=== PATIENT | female | born 1945 | race Caucasian/White ===

== ENCOUNTER 2017-12-29 15:57 | Outpatient (CLI) | payer MEDICARE ==
--- NOTE | 2017-12-30 12:35 | XRAY Report ---
DATE OF SERVICE: 12/29/2017 TWO-VIEW CHEST: 12/29/2017 CLINICAL INDICATION: Cough. FINDINGS: Frontal and lateral views of the chest demonstrate an enlarged cardiac silhouette. Lung volumes are low. There is a patchy left midlung infiltrate present. No effusion or pneumothorax is seen. IMPRESSION: PATCHY LEFT MIDLUNG INFILTRATE. TD: 12/30/2017 12:33
== END 2017-12-29 15:58 | disposition home or self-care (01) ==
LOC: DI.N 15:57
PROVIDERS: ATTEND Physician Assistant
DX: R91.8 Other nonspecific abnormal finding of lung field (principal)
CPT/HCPCS: 71046

== ENCOUNTER 2018-07-08 15:47 | Outpatient (CLI) | payer MEDICARE ==
--- NOTE | 2018-07-11 08:37 | XRAY Report ---
Procedure Date: 07/08/2018 Accession Number: [id number] / [id number] Procedure: XRN - Chest 2 View X-Ray CPT Code: 87725 FULL RESULT: EXAM: Chest 2 View X-Ray DATE: 07/08/2018 4:07 PM CLINICAL HISTORY: PNA,SCREENING COMPARISON: None. TECHNIQUE: 2 views. FINDINGS: Lungs/Pleura: No focal opacities evident. No pneumothorax or pleural effusion. Low lung volumes. Mediastinum: Heart and mediastinal contours are stable and within normal limits taking into account technique and low lung volumes. Other: None. IMPRESSION: No pneumonia. RADIA
== END 2018-07-08 15:48 | disposition home or self-care (01) ==
LOC: DI.N 15:47
PROVIDERS: ATTEND Physician Assistant
DX: Z13.83 Encounter for screening for respiratory disorder NEC (principal); N95.8 Other specified menopausal and perimenopausal disorders
CPT/HCPCS: 71046

== ENCOUNTER 2018-07-11 14:10 | Outpatient (CLI) | payer MEDICARE ==
--- NOTE | 2018-07-12 10:28 | DEXA Report ---
Procedure Date: 07/11/2018 Accession Number: [id number] / [id number] Procedure: DEX - Dexa Spine and/or Hip CPT Code: FULL RESULT: EXAM: Dexa Spine and/or Hip DATE: 07/11/2018 2:55 PM CLINICAL HISTORY: SCREENING TECHNIQUE: Dual energy x-ray absorptiometry (DXA) was performed on a [facility]. Regions measured are the AP Spine, femoral neck, and if needed forearm. COMPARISON: None. In accordance with the International Society for Clinical Densitometry (ISCD) guidelines, data from previous exams may be reanalyzed using current recommendations and techniques. This is done to allow a more accurate basis for comparison with the current study. FINDINGS: The data for the lumbar spine is as follows: BMD (g/cm/cm) T-SCORE Z-SCORE REGION L1 0.581 -4.6 -3.3 L2 0.687 -4.3 -3.0 L3 0.727 -3.9 -2.6 L4 0.801 -3.3 -2.0 TOTAL 0.705 -4.0 -2.6 NOTE: All evaluable vertebrae are used for classification The data for the hip is as follows: BMD (g/cm/cm) T-SCORE Z-SCORE REGION Neck 0.716 -2.3 -0.7 TOTAL 0.733 -2.2 -0.7 NOTE: The femoral neck or total proximal femur, whichever is lowest, is used for classification. IMPRESSION: THE WHO CLASSIFICATION BASED ON THE INTERNATIONAL REFERENCE STANDARD IS OSTEOPOROSIS. THE FRACTURE RISK IS HIGH. RECOMMENDATION: Patients with diagnosis of osteoporosis or osteopenia should have regular bone mineral density assessment. For those eligible for Medicare, routine testing is allowed once every 2 years. Testing frequency can be increased for patients who have rapidly progressing disease or for those who are receiving medical therapy to restore bone mass. COMMENT: World Health Organization (WHO) definitions for osteoporosis and osteopenia: NORMAL BMD: T-score at -1.0 or higher, fracture risk is low OSTEOPENIA BMD: T-score between -1.0 and -2.5, fracture risk is increased. OSTEOPOROSIS BMD: T-score at -2.5 or lower, fracture risk is high. National Osteoporosis Foundation recommends: 1. Obtain adequate dietary calcium (at least 1200 mg per day) and vitamin D (400-800 international units per day). 2. Participate, as appropriate, in regular weightbearing and muscle-strengthening exercise. 3. Avoid tobacco use and reduce alcohol and caffeine intake. 4. For more detailed information see the website at www.NOF.org.
== END 2018-07-11 14:11 | disposition home or self-care (01) ==
LOC: DI 14:10
PROVIDERS: ATTEND Physician Assistant
DX: Z13.820 Encounter for screening for osteoporosis (principal); M81.0 Age-related osteoporosis without current pathological fracture; N95.8 Other specified menopausal and perimenopausal disorders
CPT/HCPCS: 77080

== ENCOUNTER 2019-01-07 03:46 | Outpatient (CLI) | payer MEDICARE | END 2019-01-07 03:47 | disposition critical access hospital (66) | LOC: EMS 03:46 | PROVIDERS: ATTEND Surgery | DX: R05 Cough (principal) | CPT/HCPCS: A0425; A0429 ==

== ENCOUNTER 2019-01-07 04:08 | Emergency (ER) | payer MEDICARE ==
--- NOTE | 2019-01-07 04:23 | ED Physician Documentation ---
History of Present Illness - Stated complaint Stated Complaint: WEAKNESS,COUGH,SOA - Chief complaint Chief Complaint: Resp - History obtained from History obtained from: Patient, EMS - History of Present Illness Timing: How many days ago (2-3) Pain level max: 0 Pain level now: 0 Improved by: nothing Worsened by: no exacerbating factors - Additonal information Additional information: BIBA, c/o 2-3 days of cough, generalized weakness Review of Systems Constitutional: denies: Fever, Chills, Sweats Cardiac: reports: Reviewed and negative Respiratory: reports: Cough. denies: Dyspnea, Hemoptysis, Wheezing GI: reports: Reviewed and negative : denies: Dysuria, Frequency Neurologic: reports: Generalized weakness. denies: Focal weakness, Numbness, Altered mental status PD PAST MEDICAL HISTORY - Past Medical History Past Medical History: Yes Cardiovascular: Hypertension Neuro: Cerebral palsy GI: GERD - Present Medications Home Medications: Ambulatory Orders Medication Instructions Recorded Confirmed Benzonatate [Tessalon Perle] 100 mg PO TID PRN #20 capsule 01/07/19 Fenofibrate Nanocrystallized 145 mg PO DAILY 01/07/19 01/07/19 [Fenofibrate] Lansoprazole [Prevacid] 1 cap PO DAILY 01/07/19 01/07/19 Latanoprost 2.5 ml OP DAILY 01/07/19 01/07/19 Losartan Potassium 1 tab PO DAILY 01/07/19 01/07/19 Metoclopramide HCl [Metoclopramide 1 tab PO DAILY PRN 01/07/19 01/07/19 HCl Odt] Polyethylene Glycol 1450 1 packet PO DAILY 01/07/19 01/07/19 - Allergies Allergies/Adverse Reactions: Allergies Allergy/AdvReac Type Severity Reaction Status Date / Time No Known Drug Allergies Allergy Verified 01/07/19 04:20 PD ED PE NORMAL - Vitals Vital signs reviewed: Yes - General General: Alert and oriented X 3, No acute distress, Well developed/nourished, Other (occasional [employer] cough during H+P) - HEENT HEENT: Moist mucous membranes - Neck Neck: Supple, no meningeal sign - Cardiac Cardiac: RRR, No gallop, No rub - Respiratory Respiratory: No respiratory distress, Clear bilaterally - Abdomen Abdomen: Soft, Non tender - Derm Derm: Normal color, Warm and dry - Extremities Extremities: No edema PD ED PE EXPANDED - Cardiac Cardiac: Murmur Present (3/6 TEJA greatest at cardiac base) Results - Vitals Vitals: Vital Signs - 24 hr 01/07/19 01/07/19 01/07/19 04:10 04:38 05:29 Temperature 36.9 C 37.2 C Heart Rate 104 H 101 H 107 H Respiratory 20 23 20 Rate Blood Pressure 163/83 H 136/89 H 160/87 H O2 Saturation 95 96 96 01/07/19 01/07/19 06:06 06:41 Temperature 36.1 C L Heart Rate 105 H 96 Respiratory 23 12 Rate Blood Pressure 162/81 H 141/74 H O2 Saturation 96 96 Oxygen O2 Source Room air - Labs Labs: Laboratory Tests 01/07/19 01/07/19 01/07/19 04:30 04:30 04:30 WBC 5.9 RBC 4.30 Hgb 13.0 Hct 37.9 MCV 88.2 MCH 30.3 MCHC 34.4 RDW 13.8 Plt Count 244 MPV 7.3 L Neut # (Auto) 4.6 Lymph # (Auto) 0.6 L Cuming # (Auto) 0.7 Eos # (Auto) 0.0 Baso # (Auto) 0.0 Absolute Nucleated RBC 0.00 Nucleated RBC % 0.1 Sodium 135 Potassium 3.7 Chloride 102 Carbon Dioxide 24 Anion Gap 9.0 BUN 24 H Creatinine 0.8 Estimated GFR (MDRD) 70 L Glucose 117 H Calcium 9.7 Total Bilirubin 0.8 AST 23 ALT 13 Alkaline Phosphatase 42 B-Natriuretic Peptide 79 Total Protein 6.9 Albumin 3.8 Globulin 3.1 Albumin/Globulin Ratio 1.2 Lipase 25 Influenza A (Rapid) Influenza B (Rapid) 01/07/19 04:30 WBC RBC Hgb Hct MCV MCH MCHC RDW Plt Count MPV Neut # (Auto) Lymph # (Auto) Cuming # (Auto) Eos # (Auto) Baso # (Auto) Absolute Nucleated RBC Nucleated RBC % Sodium Potassium Chloride Carbon Dioxide Anion Gap BUN Creatinine Estimated GFR (MDRD) Glucose Calcium Total Bilirubin AST ALT Alkaline Phosphatase B-Natriuretic Peptide Total Protein Albumin Globulin Albumin/Globulin Ratio Lipase Influenza A (Rapid) Negative Influenza B (Rapid) Negative - Rads (name of study) chest xray Radiology: Prelim report reviewed, See rad report PD MEDICAL DECISION MAKING - ED course Complexity details: reviewed results, re-evaluated patient, considered differential, d/w patient Departure - Departure Disposition: 01 Home, Self Care Clinical Impression: Bronchitis Condition: Good Instructions: ED Upper Resp Infec No Abx Tx Follow-Up: Yen Fox PA-C [Primary Care Provider] - (2-3 days if symptoms do not resolve) Prescriptions: Benzonatate [Tessalon Perle] 100 mg PO TID PRN #20 capsule PRN Reason: Cough Comments: In addition to the cough medication you have been prescribed today, you can also take an [id number] cough suppressant such as Robitussin DM
[2019-01-07 04:41] LABS: BASOPHILS % (AUTO) 0.7 %; EOSINOPHILS % (AUTO) 0.1 %; LYMPHOCYTES # (AUTO) 0.6 10^3/uL (1.5-3.5); LYMPHOCYTES % (AUTO) 10.6 %; MEAN CORPUSCULAR HEMOGLOBIN 30.3 pg (27.0-31.0); MEAN CORPUSCULAR HGB CONC 34.4 g/dL (32.0-36.0); MEAN CORPUSCULAR VOLUME 88.2 fL (81.0-99.0); MEAN PLATELET VOLUME 7.3 fL (7.9-10.8); MONOCYTES # (AUTO) 0.7 10^3/uL (0.0-1.0); MONOCYTES % (AUTO) 11.3 %; NEUTROPHILS # (AUTO) 4.6 10^3/uL (1.5-6.6); NEUTROPHILS % (AUTO) 77.3 %; PLT - PLATELET COUNT 244 10^3/uL (130-450); RED CELL DISTRIBUTION WIDTH 13.8 % (12.0-15.0); WHITE BLOOD COUNT 5.9 x10^3/uL (4.8-10.8)
[2019-01-07 04:53] LABS: ALBUMIN 3.8 g/dL (3.2-5.5); ALBUMIN/GLOBULIN RATIO 1.2 (1.0-2.2); BILIRUBIN,TOTAL 0.8 mg/dL (0.2-1.0); CALCIUM 9.7 mg/dL (8.5-10.3); CREATININE 0.8 mg/dL (0.4-1.0); TOTAL PROTEIN 6.9 g/dL (6.7-8.2)
--- NOTE | 2019-01-07 05:21 | XRAY Report ---
Reason: cough, dyspnea Procedure Date: 01/07/2019 Accession Number: [id number] / [id number] Procedure: XR - Chest 2 View X-Ray CPT Code: 93954 FULL RESULT: EXAM: CHEST RADIOGRAPHY EXAM DATE: 01/07/2019 05:07 AM. CLINICAL HISTORY: Shortness of breath for 3 days. Productive cough. COMPARISON: CHEST 2 VIEW 07/08/2018 4:05 PM. TECHNIQUE: 2 views. A total of 3 exposures are provided for review. FINDINGS IMPRESSION: 1. Lung volumes are small. Left midlung field linear atelectasis and/or scarring persists. 2. Coarse interstitial opacities are seen bilaterally, suggesting nonspecific scarring. 3. Cardiac silhouette remains mildly enlarged. No definite evidence of overt CHF. 4. No large effusion or definite pneumothorax. RADIA
[2019-01-07] MEDS ORDERED: BENZONATATE 100 MG CAPSULE PO STA (06:29)
[2019-01-07] MEDS ORDERED: guaiFENesin/DEXTROMETHORPHAN 10 ML UDC PO STA (06:29)
[2019-01-07 09:22] VITALS: BP 151/74
== END 2019-01-07 08:30 | disposition home or self-care (01) ==
LOC: EDUNIT# → ED 04:08
DX: J40 Bronchitis, not specified as acute or chronic (principal); I10 Essential (primary) hypertension; G80.9 Cerebral palsy, unspecified
CPT/HCPCS: 36415; 71046; 80053; 83690; 83880; 85025; 87275; 87276; 99283; 99284; A9270

== ENCOUNTER 2019-10-02 00:36 | Outpatient (CLI) | payer MEDICARE | END 2019-10-02 00:37 | disposition critical access hospital (66) | LOC: EMS 00:36 | PROVIDERS: ATTEND Surgery | DX: R05 Cough (principal) ==

== ENCOUNTER 2019-10-02 00:57 | Emergency (ER) | payer MEDICARE ==
[2019-10-02 01:09] VITALS: BP 133/66
[2019-10-02] MEDS ORDERED: ALBUTEROL NEB 2.5 MG/3 ML INH STA (01:09)
[2019-10-02] MEDS ORDERED: BENZONATATE 100 MG CAPSULE PO STA (01:09)
--- NOTE | 2019-10-02 01:14 | ED Physician Documentation ---
PD HPI URI - Stated complaint Stated Complaint: COUGH - Chief complaint Chief Complaint: Resp - History obtained from History obtained from: Patient, EMS - History of Present Illness Timing - onset: How many weeks ago (1) Timing duration: Weeks (1) Timing details: Gradual onset Pain level max: 0 Pain level now: 0 Associated symptoms: Nasal congestion, Rhinorrhea, Dry cough, Dyspnea (wheezing, out of her albuterol for "a while"). No: Fever, Hemoptysis Contributing factors: COPD / asthma Improves by: Rest Worsened by: Activity, Breathing Recently seen: Not recently seen Review of Systems Constitutional: denies: Fever, Chills Respiratory: reports: Cough GI: denies: Vomiting, Diarrhea Skin: denies: Rash Musculoskeletal: denies: Neck pain, Back pain Neurologic: denies: Headache PD PAST MEDICAL HISTORY - Past Medical History Cardiovascular: Hypertension Neuro: Cerebral palsy GI: GERD HEENT: Glaucoma - Present Medications Home Medications: Ambulatory Orders Medication Instructions Recorded Confirmed Fenofibrate Nanocrystallized 145 mg PO DAILY 01/07/19 01/07/19 [Fenofibrate] Lansoprazole [Prevacid] 1 cap PO DAILY 01/07/19 01/07/19 Latanoprost 1 drops OP DAILY 01/07/19 01/07/19 Losartan Potassium 0.5 tab PO DAILY 01/07/19 01/07/19 Metoclopramide HCl [Metoclopramide 1 tab PO DAILY PRN 01/07/19 01/07/19 HCl Odt] Polyethylene Glycol 1450 1 packet PO DAILY 01/07/19 01/07/19 Albuterol Sulf [Ventolin Hfa 1 - 2 puffs INH Q4HR PRN #1 inhaler 10/02/19 Inhaler] Albuterol Sulfate [Albuterol 2 puffs PRN PRN 10/02/19 10/02/19 Sulfate Hfa] Benzonatate [Tessalon Perle] 100 - 200 mg PO TID PRN #30 capsule 10/02/19 - Allergies Allergies/Adverse Reactions: Allergies Allergy/AdvReac Type Severity Reaction Status Date / Time No Known Drug Allergies Allergy Verified 01/07/19 04:20 - Social History Does the pt smoke?: No Smoking Status: Never smoker Does the pt drink ETOH?: No Does the pt have substance abuse?: No - Immunizations Immunizations are current?: No - POLST Patient has POLST: No PD ED PE NORMAL - Vitals Vital signs reviewed: Yes - General General: Alert and oriented X 3, No acute distress, Well developed/nourished - HEENT HEENT: Ears normal, Moist mucous membranes, Pharynx benign - Neck Neck: Supple, no meningeal sign - Cardiac Cardiac: RRR - Respiratory Respiratory: No respiratory distress, Other (Wheezing bilaterally) - Abdomen Abdomen: Soft, Non tender, Non distended - Derm Derm: Warm and dry - Extremities Extremities: No edema - Neuro Neuro: Alert and oriented X 3 Results - Vitals Vitals: Vital Signs - 24 hr 10/02/19 10/02/19 01:03 01:33 Temperature 36.7 C Heart Rate 86 85 Respiratory 20 20 Rate Blood Pressure 133/66 H O2 Saturation 97 Oxygen O2 Source Room air - Rads (name of study) cxr Radiology: Prelim report reviewed, EMP read contemporaneously, See rad report (Small streaky bibasilar airspace disease demonstrates progression. This may be from atelectasis, aspiration, or pneumonia. 2. Left midlung field linear subsegmental scarring noted. ) PD MEDICAL DECISION MAKING - ED course Complexity details: reviewed results, re-evaluated patient, considered differential, d/w patient ED course: Patient is well-appearing, nontoxic. Afebrile. No acute findings of pneumonia on chest x-ray. Feels better after nebulizer treatment. Will place on cough medication and refill her albuterol for home. We will hold steroids at this time. No respiratory distress or hypoxia. Patient counseled regarding signs and symptoms for which I believe and urgent re-evaluation would be necessary. Patient with good understanding of and agreement to plan and is comfortable going home at this time This document was made in part using voice recognition software. While efforts are made to proofread this document, sound alike and grammatical errors may occur. Departure - Departure Disposition: 01 Home, Self Care Clinical Impression: Viral URI Condition: Good Instructions: ED URI Viral Follow-Up: Yen Fox PA-C [Primary Care Provider] - Within 1 week Prescriptions: Albuterol Sulf [Ventolin Hfa Inhaler] 1 - 2 puffs INH Q4HR PRN #1 inhaler PRN Reason: Shortness Of Air/Wheezing Benzonatate [Tessalon Perle] 100 - 200 mg PO TID PRN #30 capsule PRN Reason: Cough Comments: Use the medications as prescribed. Return if you worsen. Follow-up with your doctor for further care.
--- NOTE | 2019-10-02 01:52 | XRAY Report ---
Reason: cough Procedure Date: 10/02/2019 Accession Number: [id number] / [id number] Procedure: XR - Chest 2 View X-Ray CPT Code: 50279 Final Report FULL RESULT: EXAM: CHEST RADIOGRAPHY EXAM DATE: 10/02/2019 01:35 AM. CLINICAL HISTORY: Cough. COMPARISON: CHEST 2 VIEW 01/07/2019 4:49 AM. TECHNIQUE: 2 views. FINDINGS: Lungs/Pleura: Lung volumes remain small as before. Left midlung field scarring is again seen. Small streaky bibasilar airspace disease demonstrates progression. There is no effusion. No definite pneumothorax. Mediastinum: Cardiac silhouette is within normal limits when accounting for lung volumes and technique. Other: Moderate multilevel thoracic degenerative change. IMPRESSION: 1. Small streaky bibasilar airspace disease demonstrates progression. This may be from atelectasis, aspiration, or pneumonia. 2. Left midlung field linear subsegmental scarring noted. RADIA
== END 2019-10-02 02:11 | disposition home or self-care (01) ==
LOC: EDUNIT# → ED 00:57
DX: J06.9 Acute upper respiratory infection, unspecified (principal); B97.89 Other viral agents as the cause of diseases classified elsewhere; I10 Essential (primary) hypertension; G80.9 Cerebral palsy, unspecified
CPT/HCPCS: 71046; 94640; 99283; 99284; A9270

== ENCOUNTER 2020-08-21 10:40 | Outpatient (CLI) | payer MEDICARE ==
--- NOTE | 2020-08-21 11:16 | XRAY Report ---
PROCEDURE: Chest 2 View X-Ray INDICATIONS: COUGH TECHNIQUE: 2 view(s) of the chest. COMPARISON: None. FINDINGS: Surgical changes and devices: None. Lungs and pleura: No pleural effusions or pneumothorax. Lungs are clear. Mediastinum: Mediastinal contours are normal. Heart size is enlarged. Bones and chest wall: No suspicious bony abnormalities. Soft tissues appear unremarkable. IMPRESSION: No acute cardiopulmonary pathology. Cardiomegaly. Reviewed by: Fuentes Oswald MD on 08/21/2020 11:15 AM PDT Approved by: Fuentes Oswald MD on 08/21/2020 11:15 AM PDT Station ID: [id number]
== END 2020-08-21 10:41 | disposition home or self-care (01) ==
LOC: DI 10:40
PROVIDERS: ATTEND Physician Assistant
DX: R05 Cough (principal); R01.1 Cardiac murmur, unspecified
CPT/HCPCS: 71046

== ENCOUNTER 2020-12-28 14:46 | Outpatient (CLI) | payer MEDICARE ==
--- NOTE | 2020-12-28 15:23 | XRAY Report ---
PROCEDURE: Forearm RT INDICATIONS: CONTUSION OF RIGHT ARM TECHNIQUE: 2 views of the forearm were acquired. COMPARISON: None. FINDINGS: Bones: No fractures or dislocations. No suspicious bony lesions. Note is made of negative ulnar va riance. Age-appropriate degenerative changes are seen. Soft tissues: No suspicious soft tissue calcifications or masses. IMPRESSION: No significant plain film abnormality is seen. Reviewed by: Bernabe Nicolas MD on 12/28/2020 2:22 PM [place] Approved by: Bernabe Nicolas MD on 12/28/2020 2:22 PM [place] Station ID: [id number]
== END 2020-12-28 23:59 | disposition home or self-care (01) ==
LOC: DI.N 14:46
PROVIDERS: ATTEND Nurse Practitioner
DX: S50.11XA Contusion of right forearm, initial encounter (principal)

== ENCOUNTER 2021-01-06 23:02 | Outpatient (CLI) | payer MEDICARE | END 2021-01-06 23:03 | disposition critical access hospital (66) | LOC: EMS 23:02 | PROVIDERS: ATTEND Emergency Medicine | DX: R53.1 Weakness (principal) | CPT/HCPCS: A0425; A0429 ==

== ENCOUNTER 2021-01-06 23:18 | Emergency (ER) | payer MEDICARE ==
--- NOTE | 2021-01-06 23:39 | ED Physician Documentation ---
PD HPI FOCAL NEURO - Stated complaint Stated Complaint: WEAKNESS - Chief complaint Chief Complaint: Neuro - History obtained from History obtained from: Patient, EMS - History of Present Illness Timing - onset: Other (feeling of generalized weakness mostly in evenings for the past several days to a week.) Timing - duration: Days (several days or more, having feeling of general weakness mainly in the evening and when up overnight. She says she feels okay in the mornings and during day, getting around with walker.) Timing - details: Waxing and waning Severity of deficit: Moderate Weakness: Other (generalized). No: Face Numbness: No: Face, Arm, Leg Associated symptoms: No: Headache, Nausea / vomiting, Syncope, Chest pain, Back pain Contributing factors: negative: Anticoagulated, Atrial fibrillation Baseline status: positive: Walker Similar symptoms before: Has not had sx before Recently seen: Not recently seen (denies any recent change in medications) Review of Systems Constitutional: denies: Fever, Chills Nose: denies: Rhinorrhea / runny nose, Congestion Throat: denies: Sore throat Cardiac: reports: Pedal edema (for 1-2 weeks, mild). denies: Chest pain / pressure, Palpitations, Calf pain Respiratory: denies: Dyspnea, Cough GI: denies: Abdominal Pain, Nausea, Vomiting, Diarrhea, Bloody / black stool : denies: Dysuria, Frequency Skin: denies: Rash, Lesions Neurologic: reports: Generalized weakness. denies: Focal weakness, Numbness, Headache Endocrine: denies: Weight gain PD PAST MEDICAL HISTORY - Past Medical History Cardiovascular: Hypertension Neuro: Dementia, Cerebral palsy GI: GERD HEENT: Glaucoma - Present Medications Home Medications: Ambulatory Orders Medication Instructions Recorded Confirmed Lansoprazole [Prevacid] 1 cap PO DAILY 01/07/19 01/07/19 Losartan Potassium 0.5 tab PO DAILY 01/07/19 01/07/19 Albuterol Sulfate [Albuterol 2 puffs PRN PRN 10/02/19 10/02/19 Sulfate Hfa] - Allergies Allergies/Adverse Reactions: Allergies Allergy/AdvReac Type Severity Reaction Status Date / Time No Known Drug Allergies Allergy Verified 01/07/19 04:20 - Social History Does the pt smoke?: No Smoking Status: Never smoker Does the pt drink ETOH?: No Does the pt have substance abuse?: No - Immunizations Immunizations are current?: No - POLST Patient has POLST: No PD ED PE NORMAL - Vitals Vital signs reviewed: Yes - General General: Alert and oriented X 3, No acute distress, Well developed/nourished - HEENT HEENT: Pharynx benign - Neck Neck: Supple, no meningeal sign, No adenopathy - Cardiac Cardiac: RRR, No murmur - Respiratory Respiratory: No respiratory distress, Clear bilaterally (mostly with some faint mild crackles at bases. ) - Abdomen Abdomen: Normal bowel sounds, Soft, Non tender, Non distended - Back Back: No CVA TTP - Derm Derm: Normal color, Warm and dry - Extremities Extremities: No tenderness to palpate, Normal ROM s pain, No calf tenderness / cord, Other (1+ edema in both legs at ankles and up to proximal lower legs. ) - Neuro Neuro: Alert and oriented X 3, No motor deficit, Normal speech Eye Opening: Spontaneous Motor: Obeys Commands Verbal: Oriented GCS Score: 15 - Psych Psych: Normal mood Results - Vitals Vitals: Vital Signs - 24 hr 01/06/21 01/07/21 01/07/21 23:24 01:29 03:00 Temperature 36.7 C 36.7 C 36.6 C Heart Rate 91 99 81 Respiratory 18 24 18 Rate Blood Pressure 134/121 H 125/89 H 120/75 O2 Saturation 98 96 97 Oxygen O2 Source Room air - EKG (time done) 23:46 Rate: Rate (enter#) (85) Rhythm: NSR [place]: Normal Intervals: Normal ND QRS: Normal Ischemia: Normal ST segments. No: ST elevation c/w ischemia, ST depression - Labs Labs: Laboratory Tests 01/06/21 01/06/21 01/06/21 23:39 23:39 23:39 WBC 8.1 RBC 4.14 L Hgb 12.3 Hct 38.6 MCV 93.2 MCH 29.7 MCHC 31.9 L RDW 13.4 Plt Count 305 MPV 9.3 Neut # (Auto) 5.5 Lymph # (Auto) 1.8 Kerr # (Auto) 0.6 Eos # (Auto) 0.2 Baso # (Auto) 0.1 Absolute Nucleated RBC 0.00 Nucleated RBC % 0.0 Sodium 136 Potassium 3.8 Chloride 102 Carbon Dioxide 24 Anion Gap 10.0 BUN 30 H Creatinine 0.7 Estimated GFR (MDRD) 81 L Glucose 117 H Calcium 10.7 H Magnesium 1.9 Total Bilirubin 0.8 AST 28 ALT 31 Alkaline Phosphatase 36 L Troponin I High Sens 5.5 Total Protein 6.9 Albumin 4.0 Globulin 2.9 Albumin/Globulin Ratio 1.4 TSH 01/06/21 23:39 WBC RBC Hgb Hct MCV MCH MCHC RDW Plt Count MPV Neut # (Auto) Lymph # (Auto) Kerr # (Auto) Eos # (Auto) Baso # (Auto) Absolute Nucleated RBC Nucleated RBC % Sodium Potassium Chloride Carbon Dioxide Anion Gap BUN Creatinine Estimated GFR (MDRD) Glucose Calcium Magnesium Total Bilirubin AST ALT Alkaline Phosphatase Troponin I High Sens Total Protein Albumin Globulin Albumin/Globulin Ratio TSH 1.08 - Rads (name of study) chest xray Radiology: Prelim report reviewed (some interval development of pulmonary edema (or pneumonitis)), See rad report PD MEDICAL DECISION MAKING - ED course Complexity details: reviewed results (No focal deficits. States general weakness mostly in evenings. Can check basic labs. CXR and ECG. ), considered differenti al, d/w patient ED course: Nurse called the patient's sister, with whome the patient lives. Sister is unable to get the patient (Is chair bound at home). Sister says the patient has dementia and is not safe to come home by taxi; need someone to escort her to the door and ensure she gets there safely and not wander. Departure - Departure Disposition: 01 Home, Self Care Clinical Impression: Edema leg, Generalized weakness Condition: Stable Record reviewed to determine appropriate education?: Yes Instructions: ED Weakness [facility] Comments: Your blood count and white count are normal. Chest x-ray shows possibly some fluid edema in the lungs. You have swelling in both legs. I think some of your weakness feeling may be just from fluid retention. I would suggest adding fur osemide diuretic (water pill) daily for several days to week. Continue your other usual medicines. Follow-up with your primary care if not feeling improved over the next several days.
[2021-01-06 23:55] LABS: BASOPHILS # (AUTO) 0.1 10^3/uL (0.0-0.1); BASOPHILS % (AUTO) 0.6 %; EOSINOPHILS # (AUTO) 0.2 10^3/uL (0.0-0.7); EOSINOPHILS % (AUTO) 1.9 %; HGB - HEMOGLOBIN 12.3 g/dL (12.0-16.0); LYMPHOCYTES # (AUTO) 1.8 10^3/uL (1.5-3.5); LYMPHOCYTES % (AUTO) 21.9 %; MEAN CORPUSCULAR HEMOGLOBIN 29.7 pg (27.0-31.0); MEAN CORPUSCULAR HGB CONC 31.9 g/dL (32.0-36.0); MEAN CORPUSCULAR VOLUME 93.2 fL (81.0-99.0); MEAN PLATELET VOLUME 9.3 fL (7.9-10.8); MONOCYTES # (AUTO) 0.6 10^3/uL (0.0-1.0); MONOCYTES % (AUTO) 7.2 %; NEUTROPHILS # (AUTO) 5.5 10^3/uL (1.5-6.6); NEUTROPHILS % (AUTO) 68.3 %; PLT - PLATELET COUNT 305 10^3/uL (130-450); RED BLOOD COUNT 4.14 10^6/uL (4.20-5.40); RED CELL DISTRIBUTION WIDTH 13.4 % (12.0-15.0); WHITE BLOOD COUNT 8.1 x10^3/uL (4.8-10.8)
[2021-01-07] MEDS ORDERED: FUROSEMIDE 20 MG/2 ML VIAL IVP STA (00:53)
[2021-01-07 01:17] LABS: ALBUMIN/GLOBULIN RATIO 1.4 (1.0-2.2); BILIRUBIN,TOTAL 0.8 mg/dL (0.2-1.0); CALCIUM 10.7 mg/dL (8.5-10.3); CREATININE 0.7 mg/dL (0.4-1.0); MAGNESIUM 1.9 mg/dL (1.7-2.8); TOTAL PROTEIN 6.9 g/dL (6.7-8.2)
[2021-01-07 03:25] VITALS: BP 120/75
--- NOTE | 2021-01-07 09:09 | XRAY Report ---
PROCEDURE: Chest 1 View X-Ray INDICATIONS: chest pain TECHNIQUE: One view of the chest was acquired. COMPARISON: 08/21/2020 FINDINGS: Surgical changes and devices: None. Lungs and pleura: There are low lung volumes. Mild pulmonary vascular prominence is demonstrated con sistent with pulmonary edema. No focal consolidation. No pleural effusions or pneumothorax. Mediastinum: Mediastinal contours appear unchanged. Heart size is normal. Bones and chest wall: No suspicious bony lesions. Overlying soft tissues appear unremarkable. IMPRESSION: 1. Mild pulmonary edema which may be due to cardiogenic or noncardiogenic etiologies such as atypical infection. Reviewed by: Jackson Perez MD on 01/07/2021 9:08 AM [facility] Approved by: Jackson Perez MD on 01/07/2021 9:08 AM [facility] Station ID: [id number]
== END 2021-01-07 04:07 | disposition home or self-care (01) ==
LOC: EDUNIT# → ED 23:18
DX: R60.0 Localized edema (principal); R53.1 Weakness; G80.9 Cerebral palsy, unspecified; I45.2 Bifascicular block; I10 Essential (primary) hypertension; F03.90 Unspecified dementia, unspecified severity, without behavioral disturbance, psychotic disturbance, mood disturbance, and anxiety
CPT/HCPCS: 36415; 80053; 83735; 84443; 84484; 85025; 93005; 96374; 99284

== ENCOUNTER 2021-01-07 04:11 | Outpatient (CLI) | payer MEDICARE | END 2021-01-07 04:12 | disposition home or self-care (01) | LOC: EMS 04:11 | PROVIDERS: ATTEND Emergency Medicine | DX: F03.90 Unspecified dementia, unspecified severity, without behavioral disturbance, psychotic disturbance, mood disturbance, and anxiety (principal) | CPT/HCPCS: A0425; A0428 ==

== ENCOUNTER 2021-01-07 18:48 | Outpatient (CLI) | payer MEDICARE | END 2021-01-07 18:49 | disposition EMS.NT | LOC: EMS 18:48 | DX: Z03.89 Encounter for observation for other suspected diseases and conditions ruled out (principal) ==

== ENCOUNTER 2021-01-14 11:24 | Outpatient (CLI) | payer MEDICARE | END 2021-01-14 11:25 | disposition critical access hospital (66) | LOC: EMS 11:24 | DX: R68.83 Chills (without fever) (principal); R52 Pain, unspecified | CPT/HCPCS: A0425; A0429 ==

== ENCOUNTER 2021-01-14 11:44 | Emergency (ER) | payer MEDICARE ==
[2021-01-14 12:05] VITALS: BP 140/118
--- NOTE | 2021-01-14 12:37 | ED Physician Documentation ---
History of Present Illness - Stated complaint Stated Complaint: BODY ACHES/CHILLS/FEVER - Chief complaint Chief Complaint: General - History obtained from History obtained from: Patient, EMS - History of Present Illness Timing: How many weeks ago (1) Pain level max: 0 Pain level now: 0 - Additonal information Additional information: Patient brought in by EMS. Sister is her primary caregiver. Reports increased weakness over the past week or so. Occasional chills, no fever. No cough. No vomiting. no abd pain. no rhinorrhea or congestion. Patient unable to give any history. Has dementia and is at her normal baseline. Review of Systems Unable to obtain: Dementia Constitutional: reports: Chills. denies: Fever GI: denies: Vomiting, Diarrhea Skin: denies: Rash Musculoskeletal: denies: Neck pain, Back pain Neurologic: denies: Headache PD PAST MEDICAL HISTORY - Past Medical History Past Medical History: Yes Cardiovascular: Hypertension Respiratory: Asthma Neuro: Dementia, Cerebral palsy Endocrine/Autoimmune: None GI: GERD TRAVEL OT: None : None HEENT: Glaucoma Psych: None Musculoskeletal: None - Present Medications Home Medications: Ambulatory Orders Medication Instructions Recorded Confirmed Losartan Potassium 50 mg PO DAILY 01/07/19 01/14/21 Albuterol Sulfate [Albuterol 2 puffs IH PRN PRN 10/02/19 01/14/21 Sulfate Hfa] Bimatoprost 0.01% Ophth Dops 1 drops EACHEYE HS 01/14/21 01/14/21 [Lumigan 0.01% Ophth Drops] Calcium Carbonate [Elemental 600 mg PO DAILY 01/14/21 01/14/21 Calcium] Cholecalciferol [Vitamin D3] 25 mcg PO DAILY 01/14/21 01/14/21 Fenofibrate Nanocrystallized 145 mg PO DAILY 01/14/21 01/14/21 [Tricor] Metoclopramide [Reglan] 10 mg PO Q6H PRN 01/14/21 01/14/21 Polyethylene Glycol 3350 [Glycolax] 1 cap ORAL DAILY 01/14/21 01/14/21 - Allergies Allergies/Adverse Reactions: Allergies Allergy/AdvReac Type Severity Reaction Status Date / Time No Known Drug Allergies Allergy Verified 01/14/21 12:00 - Social History Does the pt smoke?: No Smoking Status: Never smoker Does the pt drink ETOH?: No Does the pt have substance abuse?: No - Immunizations Immunizations are current?: No - POLST Patient has POLST: No PD ED PE NORMAL - Vitals Vital signs reviewed: Yes - General General: No acute distress, Well developed/nourished, Other (alert, pleasant. Oriented to person and place only. States she does not why she is here. ) - HEENT HEENT: Moist mucous membranes - Neck Neck: Supple, no meningeal sign - Cardiac Cardiac: RRR - Respiratory Respiratory: No respiratory distress, Clear bilaterally - Abdomen Abdomen: Soft, Non tender, Non distended - Back Back: No CVA TTP - Derm Derm: Warm and dry - Extremities Extremities: No edema - Neuro Neuro: No motor deficit, No sensory deficit Results - Vitals Vitals: Vital Signs - 24 hr 01/14/21 12:01 Temperature 36.9 C Heart Rate 82 Respiratory 18 Rate Blood Pressure 140/118 H O2 Saturation 96 Oxygen O2 Source Room air - Labs Labs: Laboratory Tests 01/14/21 01/14/21 01/14/21 13:11 13:11 13:40 WBC 7.4 RBC 4.32 Hgb 12.8 Hct 40.3 MCV 93.3 MCH 29.6 MCHC 31.8 L RDW 13.4 Plt Count 365 MPV 9.2 Neut # (Auto) 5.3 Lymph # (Auto) 1.3 L [place] # (Auto) 0.6 Eos # (Auto) 0.1 Baso # (Auto) 0.0 Absolute Nucleated RBC 0.00 Nucleated RBC % 0.0 Sodium 139 Potassium 3.9 Chloride 100 L Carbon Dioxide 27 Anion Gap 12.0 BUN 21 H Creatinine 0.8 Estimated GFR (MDRD) 70 L Glucose 120 H Calcium 11.3 H Total Bilirubin 0.9 AST 23 ALT 24 Alkaline Phosphatase 38 L Total Protein 7.5 Albumin 4.5 Globulin 3.0 Albumin/Globulin Ratio 1.5 Urine Color DARK YELLOW Urine Clarity CLEAR Urine pH 7.0 Ur Specific [place] 1.020 Urine Protein NEGATIVE Urine Glucose (UA) NEGATIVE Urine Ketones TRACE Urine Occult Blood NEGATIVE Urine Nitrite NEGATIVE Urine Bilirubin NEGATIVE Urine Urobilinogen 4 H Ur Leukocyte Esterase NEGATIVE Ur Microscopic Review NOT INDICATED Urine Culture Comments NOT INDICATED PD MEDICAL DECISION MAKING - ED course Complexity details: reviewed results, re-evaluated patient, considered differential, d/w patient, d/w family ED course: 75-year-old female apparently has had generalized weakness over the past week or 2. Increased urinary frequency. Does have a severe history of dementia. Lives at home with her sister. No laboratory abnormalities. No UTI. Patient appears to be at her mental baseline. She is able to ambulate with a walker. The sister states that they have caregivers that come and help in the home. She does not want the patient to go to respite or a fdc. She declines to speak with the social worker psychiatric. I do not see any reversible causes of her condition at this time. She has an appointment with physical therapy tomorrow. This document was made in part using voice recognition software. While efforts are made to proofread this document, sound alike and grammatical errors may occur. Departure - Departure Disposition: 01 Home, Self Care Clinical Impression: Generalized weakness Condition: Good Instructions: ED Weakness [facility] Follow-Up: your,doctor within 1 week [Other] Comments: Her laboratory testing does not show any acute abnormalities today. Follow-up with her doctor for further care. Return if she worsens. Physical therapy may be able to help her more tomorrow. Discharge Date/Time: 01/14/21 16:34
[2021-01-14 13:16] LABS: BASOPHILS % (AUTO) 0.5 %; EOSINOPHILS # (AUTO) 0.1 10^3/uL (0.0-0.7); EOSINOPHILS % (AUTO) 1.9 %; HGB - HEMOGLOBIN 12.8 g/dL (12.0-16.0); LYMPHOCYTES # (AUTO) 1.3 10^3/uL (1.5-3.5); MEAN CORPUSCULAR HEMOGLOBIN 29.6 pg (27.0-31.0); MEAN CORPUSCULAR HGB CONC 31.8 g/dL (32.0-36.0); MEAN CORPUSCULAR VOLUME 93.3 fL (81.0-99.0); MEAN PLATELET VOLUME 9.2 fL (7.9-10.8); MONOCYTES # (AUTO) 0.6 10^3/uL (0.0-1.0); MONOCYTES % (AUTO) 7.6 %; NEUTROPHILS # (AUTO) 5.3 10^3/uL (1.5-6.6); NEUTROPHILS % (AUTO) 71.7 %; PLT - PLATELET COUNT 365 10^3/uL (130-450); RED BLOOD COUNT 4.32 10^6/uL (4.20-5.40); RED CELL DISTRIBUTION WIDTH 13.4 % (12.0-15.0); WHITE BLOOD COUNT 7.4 x10^3/uL (4.8-10.8)
[2021-01-14 13:33] LABS: ALBUMIN 4.5 g/dL (3.2-5.5); ALBUMIN/GLOBULIN RATIO 1.5 (1.0-2.2); BILIRUBIN,TOTAL 0.9 mg/dL (0.2-1.0); CALCIUM 11.3 mg/dL (8.5-10.3); CREATININE 0.8 mg/dL (0.4-1.0); TOTAL PROTEIN 7.5 g/dL (6.7-8.2)
[2021-01-14 14:11] LABS: BILIRUBIN,URINE NEGATIVE (NEGATIVE); GLUCOSE, URINE (UA) NEGATIVE (NEGATIVE); KETONES,URINE (UA) TRACE mg/dL (NEGATIVE); LEUKOCYTE ESTERASE, URINE NEGATIVE (NEGATIVE); NITRITE,URINE NEGATIVE (NEGATIVE); OCCULT BLOOD,URINE NEGATIVE (NEGATIVE); PROTEIN,URINE NEGATIVE (NEGATIVE); UROBILINOGEN,URINE 4 E.U./dL (NORMAL)
[2021-01-14 14:21] LABS: CLARITY,URINE CLEAR (CLEAR)
== END 2021-01-14 16:34 | disposition home or self-care (01) ==
LOC: EDUNIT# → ED 11:44
DX: R53.1 Weakness (principal); F03.90 Unspecified dementia, unspecified severity, without behavioral disturbance, psychotic disturbance, mood disturbance, and anxiety; I10 Essential (primary) hypertension; G80.9 Cerebral palsy, unspecified
CPT/HCPCS: 36415; 51701; 80053; 81003; 85025; 99283; U0004; 81001; 87086

== ENCOUNTER 2021-01-14 16:19 | Outpatient (CLI) | payer MEDICARE | END 2021-01-14 16:20 | disposition home or self-care (01) | LOC: EMS 16:19 | PROVIDERS: ATTEND Emergency Medicine | DX: F03.90 Unspecified dementia, unspecified severity, without behavioral disturbance, psychotic disturbance, mood disturbance, and anxiety (principal); R41.0 Disorientation, unspecified | CPT/HCPCS: A0425; A0428 ==

== ENCOUNTER 2021-01-20 21:20 | Outpatient (CLI) | payer MEDICARE | END 2021-01-20 21:21 | disposition critical access hospital (66) | LOC: EMS 21:20 | PROVIDERS: ATTEND Emergency Medicine | DX: R53.1 Weakness (principal); R53.83 Other fatigue; R63.8 Other symptoms and signs concerning food and fluid intake | CPT/HCPCS: A0425; A0429 ==

== ENCOUNTER 2021-01-20 21:39 | Emergency (ER) | payer MEDICARE ==
--- NOTE | 2021-01-20 21:40 | ED Physician Documentation ---
History of Present Illness - Stated complaint Stated Complaint: GENERALIZED WEAKNESS - History obtained from History obtained from: Patient, EMS - History of Present Illness Timing: How many weeks ago (1-2) Pain level max: 0 Pain level now: 0 Improved by: nothing Worsened by: no exacerbating factors - Additonal information Additional information: BIBA. Patient reportedly has baseline dementia and thus her contribution to HPI/ROS is limited. Per EMS report, patient's sister, who is the primary car egiver, reports that patient has had gradually worsening generalized weakness and decreasing PO intake over past 1-2 weeks. Patient simply says "my sister wanted me to come" when I ask her why she is here. Patient denies any pain, including (when specifically asked) neck, arm, and back pain. She denies changes in vision, denies difficulty breathing. Regarding difficulty walking, she says "of course", but cannot elaborate on when she started having difficulty and whether it is worsening. She uses a walker. She is oriented x 1 (location: guesses "assisted?", then laughs as if she knows that this is incorrect, but she cannot offer any other guess. She says it is December but has no guess as to year). EMS say that sister also reports that patient has had episodes of dyspnea with exertion. Patient was T+R 01/06 and 01/14 of this month, as well. On one of those visits, medical record indicates family declined to meet with social work and expressed that they did not want placement in assisted or similar facility. Review of Systems Unable to obtain: Dementia Respiratory: reports: Dyspnea Neurologic: reports: Generalized weakness PD PAST MEDICAL HISTORY - Past Medical History Past Medical History: Yes Respiratory: Asthma - Present Medications Home Medications: Ambulatory Orders Medication Instructions Recorded Confirmed Losartan Potassium 50 mg PO DAILY 01/07/19 01/14/21 Albuterol Sulfate [Albuterol 2 puffs IH PRN PRN 10/02/19 01/14/21 Sulfate Hfa] Bimatoprost 0.01% Ophth Dops 1 drops EACHEYE HS 01/14/21 01/14/21 [Lumigan 0.01% Ophth Drops] Calcium Carbonate [Elemental 600 mg PO DAILY 01/14/21 01/14/21 Calcium] Cholecalciferol [Vitamin D3] 25 mcg PO DAILY 01/14/21 01/14/21 Fenofibrate Nanocrystallized 145 mg PO DAILY 01/14/21 01/14/21 [Tricor] Metoclopramide [Reglan] 10 mg PO Q6H PRN 01/14/21 01/14/21 Polyethylene Glycol 3350 [Glycolax] 1 cap ORAL DAILY 01/14/21 01/14/21 Aspirin [Aspirin EC] 81 mg PO DAILY 01/20/21 01/20/21 Furosemide [Lasix] 20 mg PO DAILY 01/20/21 01/20/21 Lansoprazole [Prevacid] 30 mg PO DAILY 01/20/21 01/20/21 Mecobalamin [B-12] 5,000 mcg PO DAILY 01/20/21 01/20/21 - Allergies Allergies/Adverse Reactions: Allergies Allergy/AdvReac Type Severity Reaction Status Date / Time No Known Drug Allergies Allergy Verified 01/14/21 12:00 PD ED PE NORMAL - Vitals Vital signs reviewed: Yes - General General: No acute distress, Well developed/nourished, Other (awake, alert, smiling and pleasant, conversant and gives appropriate answers although frequently incorrect when asked specific objective questions (such as orientati on questions)) - HEENT HEENT: PERRL, EOMI - Neck Neck: Supple, no meningeal sign, No bony TTP - Cardiac Cardiac: RRR, No murmur - Respiratory Respiratory: No respiratory distress, Clear bilaterally - Abdomen Abdomen: Soft, Non tender - Back Back: No spinal TTP - Derm Derm: Normal color, Warm and dry - Extremities Extremities: No edema - Neuro Neuro: carry out clerk and shelf stocker 2-12 intact, No motor deficit, No sensory deficit, Normal speech Eye Opening: Spontaneous Motor: Obeys Commands Verbal: Confused GCS Score: 14 - Psych Psych: Normal mood, Normal affect Results - Vitals Vitals: Vital Signs - 24 hr 01/21/21 01/21/21 01/21/21 09:00 11:00 12:03 Temperature 37.0 C Heart Rate 90 100 87 Respiratory 18 20 17 Rate Blood Pressure 151/69 H 144/68 H 146/89 H O2 Saturation 96 95 100 Oxygen O2 Source Room air - Labs Labs: Laboratory Tests 01/20/21 01/20/21 01/20/21 22:33 22:33 22:33 WBC 8.4 RBC 4.41 Hgb 13.2 Hct 40.4 MCV 91.6 MCH 29.9 MCHC 32.7 RDW 13.2 Plt Count 324 MPV 9.2 Neut # (Auto) 5.7 Lymph # (Auto) 1.9 [place] # (Auto) 0.7 Eos # (Auto) 0.1 Baso # (Auto) 0.0 Absolute Nucleated RBC 0.00 Nucleated RBC % 0.0 Sodium 138 Potassium 3.7 Chloride 100 L Carbon Dioxide 25 Anion Gap 13.0 BUN 18 Creatinine 0.9 Estimated GFR (MDRD) 61 L Glucose 103 H Calcium 11.0 H Total Bilirubin 1.0 AST 20 ALT 18 Alkaline Phosphatase 38 L B-Natriuretic Peptide 52 Total Protein 7.4 Albumin 4.4 Globulin 3.0 Albumin/Globulin Ratio 1.5 Lipase 25 Urine Color Urine Clarity Urine pH Ur Specific [place] Urine Protein Urine Glucose (UA) Urine Ketones Urine Occult Blood Urine Nitrite Urine Bilirubin Urine Urobilinogen Ur Leukocyte Esterase Ur Microscopic Review Urine Culture Comments 01/21/21 00:28 WBC RBC Hgb Hct MCV MCH MCHC RDW Plt Count MPV Neut # (Auto) Lymph # (Auto) [place] # (Auto) Eos # (Auto) Baso # (Auto) Absolute Nucleated RBC Nucleated RBC % Sodium Potassium Chloride Carbon Dioxide Anion Gap BUN Creatinine Estimated GFR (MDRD) Glucose Calcium Total Bilirubin AST ALT Alkaline Phosphatase B-Natriuretic Peptide Total Protein Albumin Globulin Albumin/Globulin Ratio Lipase Urine Color DARK YELLOW Urine Clarity CLEAR Urine pH 6.0 Ur Specific [place] 1.020 Urine Protein NEGATIVE Urine Glucose (UA) NEGATIVE Urine Ketones TRACE Urine Occult Blood NEGATIVE Urine Nitrite NEGATIVE Urine Bilirubin NEGATIVE Urine Urobilinogen 4 H Ur Leukocyte Esterase NEGATIVE Ur Microscopic Review NOT INDICATED Urine Culture Comments NOT INDICATED - Rads (name of study) chest xray Radiology: Prelim report reviewed, See rad report PD MEDICAL DECISION MAKING - ED course Complexity details: reviewed results, re-evaluated patient, considered differential, d/w patient ED course: No acute/emergent findings on exam nor testing. ED RN contacted caregiver who expressed frustration with ongoing care of patient. Consult with social economist was suggested and caregiver agrees with this option. Patient held overnight in ED for SW consult in AM, case signed out to Dr. Stover at end of my shift pending SW consult Departure - Departure Disposition: 01 Home, Self Care Clinical Impression: Generalized weakness Condition: Good Instructions: ED Weakness [facility] Follow-Up: [facility] [Provider Group] Discharge Date/Time: 01/21/21 12:05
[2021-01-20 22:39] LABS: BASOPHILS % (AUTO) 0.5 %; EOSINOPHILS # (AUTO) 0.1 10^3/uL (0.0-0.7); EOSINOPHILS % (AUTO) 1.3 %; HGB - HEMOGLOBIN 13.2 g/dL (12.0-16.0); LYMPHOCYTES # (AUTO) 1.9 10^3/uL (1.5-3.5); LYMPHOCYTES % (AUTO) 22.2 %; MEAN CORPUSCULAR HEMOGLOBIN 29.9 pg (27.0-31.0); MEAN CORPUSCULAR HGB CONC 32.7 g/dL (32.0-36.0); MEAN CORPUSCULAR VOLUME 91.6 fL (81.0-99.0); MEAN PLATELET VOLUME 9.2 fL (7.9-10.8); MONOCYTES # (AUTO) 0.7 10^3/uL (0.0-1.0); MONOCYTES % (AUTO) 8.2 %; NEUTROPHILS # (AUTO) 5.7 10^3/uL (1.5-6.6); NEUTROPHILS % (AUTO) 67.6 %; PLT - PLATELET COUNT 324 10^3/uL (130-450); RED BLOOD COUNT 4.41 10^6/uL (4.20-5.40); RED CELL DISTRIBUTION WIDTH 13.2 % (12.0-15.0); WHITE BLOOD COUNT 8.4 x10^3/uL (4.8-10.8)
[2021-01-20 22:52] LABS: ALBUMIN 4.4 g/dL (3.2-5.5); ALBUMIN/GLOBULIN RATIO 1.5 (1.0-2.2); CREATININE 0.9 mg/dL (0.4-1.0); TOTAL PROTEIN 7.4 g/dL (6.7-8.2)
[2021-01-21 00:39] LABS: GLUCOSE, URINE (UA) NEGATIVE (NEGATIVE); KETONES,URINE (UA) TRACE mg/dL (NEGATIVE); LEUKOCYTE ESTERASE, URINE NEGATIVE (NEGATIVE); NITRITE,URINE NEGATIVE (NEGATIVE); OCCULT BLOOD,URINE NEGATIVE (NEGATIVE); PROTEIN,URINE NEGATIVE (NEGATIVE); UROBILINOGEN,URINE 4 E.U./dL (NORMAL)
[2021-01-21 00:42] LABS: BILIRUBIN,URINE NEGATIVE (NEGATIVE); CLARITY,URINE CLEAR (CLEAR); ICTOTEST,URINE NEGATIVE
--- NOTE | 2021-01-21 09:02 | XRAY Report ---
PROCEDURE: Chest 2 View X-Ray INDICATIONS: dyspnea TECHNIQUE: 2 view(s) of the chest. COMPARISON: 08/21/2020, 01/06/2021. FINDINGS: Surgical changes and devices: None. Lungs and pleura: No pleural effusions or pneumothorax. Mild diffuse interstitial prominence, likely chronic. Streaky left greater than right bibasilar opacities compatible with atelectasis. No focal c onsolidation. Mediastinum: Mediastinal contours are stable. Heart size is enlarged. Bones and chest wall: No suspicious bony abnormalities. Soft tissues appear unremarkable. IMPRESSION: Cardiomegaly with mild diffuse interstitial prominence. Otherwise, no evidence for pulmonary edema. Stable appearance of streaky bibasilar opacities likely representing atelectasis and/or scarring. No focal consolidation. No significant discrepancy with initial interpretation by overnight radiologist. Reviewed by: Mamadou Henry MD on 01/21/2021 9:01 AM PST Approved by: Mamadou Henry MD on 01/21/2021 9:01 AM PST Station ID: [id number]
--- NOTE | 2021-01-21 11:43 | ED Physician Documentation ---
ED Addendum - Addendum Addendum: 01/21/21 11:41 The patient was seen by social work who talked with the patient and her sister who is her primary caregiver. They discussed options of respite care but the sister declined based on financial and other issues. Apparently the sister wants to still be the main caregiver. Social work did assist them with information about home health aides and that will be established by the sister. The patient will be returned home in the caregiver is in agreement. Disposition: Discharged home in stable condition.
[2021-01-21 12:03] VITALS: BP 146/89
== END 2021-01-21 12:05 | disposition home or self-care (01) ==
LOC: EDUNIT# → ED 21:39
DX: R42 Dizziness and giddiness (principal); F03.90 Unspecified dementia, unspecified severity, without behavioral disturbance, psychotic disturbance, mood disturbance, and anxiety
CPT/HCPCS: 36415; 51701; 80053; 81001; 81003; 83690; 83880; 85025; 87086; 99284

== ENCOUNTER 2021-01-21 12:09 | Outpatient (CLI) | payer MEDICARE | END 2021-01-21 12:10 | disposition home or self-care (01) | LOC: EMS 12:09 | DX: F03.90 Unspecified dementia, unspecified severity, without behavioral disturbance, psychotic disturbance, mood disturbance, and anxiety (principal); R53.1 Weakness | CPT/HCPCS: A0425; A0428 ==

== ENCOUNTER 2021-01-26 17:35 | Outpatient (CLI) | payer MEDICARE | END 2021-01-26 17:36 | disposition critical access hospital (66) | LOC: EMS 17:35 | PROVIDERS: ATTEND Emergency Medicine | DX: R53.1 Weakness (principal) | CPT/HCPCS: A0425; A0429 ==

== ENCOUNTER 2021-01-26 17:53 | Emergency (ER) | payer MEDICARE ==
[2021-01-26] MEDS ORDERED: SODIUM CHLORIDE 0.9% 1,000 ML IV STA (18:04)
--- NOTE | 2021-01-26 18:04 | ED Physician Documentation ---
History of Present Illness - Stated complaint Stated Complaint: WEAKNESS - Chief complaint Chief Complaint: General - History obtained from History obtained from: Patient, EMS - History of Present Illness Timing: Today Pain level max: 0 Pain level now: 0 - Additonal information Additional information: Patient is a pleasant 75-year-old female with dementia who lives at home with her sister. Her sister called EMS tonight because the patient has been "weaker than usual". The patient apparently has also had increased urination over the past few days. No fevers. No vomiting. Nothing makes it better or worse. Patient is unable to give any meaningful history. Per EMS there has been no trauma. Review of Systems Unable to obtain: Dementia Ten Systems: 10 systems reviewed and negative Constitutional: denies: Fever, Chills Nose: denies: Rhinorrhea / runny nose, Congestion Respiratory: denies: Cough GI: denies: Vomiting, Diarrhea : denies: Dysuria, Frequency, Hesitancy Skin: denies: Rash Neurologic: denies: Headache PD PAST MEDICAL HISTORY - Past Medical History Past Medical History: Yes Cardiovascular: Hypertension Respiratory: Asthma Neuro: Dementia, Cerebral palsy Endocrine/Autoimmune: None GI: GERD WEAVER WIRE LOOM: None : None HEENT: Glaucoma Psych: None Musculoskeletal: None - Past Surgical History Past Surgical History: Yes - Present Medications Home Medications: Ambulatory Orders Medication Instructions Recorded Confirmed Losartan Potassium 50 mg PO DAILY 01/07/19 01/26/21 Albuterol Sulfate [Albuterol 2 puffs IH PRN PRN 10/02/19 01/26/21 Sulfate Hfa] Bimatoprost 0.01% Ophth Dops 1 drops EACHEYE HS 01/14/21 01/26/21 [Lumigan 0.01% Ophth Drops] Calcium Carbonate [Elemental 600 mg PO DAILY 01/14/21 01/26/21 Calcium] Cholecalciferol [Vitamin D3] 25 mcg PO DAILY 01/14/21 01/26/21 Fenofibrate Nanocrystallized 145 mg PO DAILY 01/14/21 01/26/21 [Tricor] Metoclopramide [Reglan] 10 mg PO Q6H PRN 01/14/21 01/26/21 Polyethylene Glycol 3350 [Glycolax] 1 cap ORAL DAILY 01/14/21 01/26/21 Aspirin [Aspirin EC] 81 mg PO DAILY 01/20/21 01/26/21 Furosemide [Lasix] 20 mg PO DAILY 01/20/21 01/26/21 Lansoprazole [Prevacid] 30 mg PO DAILY 01/20/21 01/26/21 Mecobalamin [B-12] 5,000 mcg PO DAILY 01/20/21 01/26/21 - Allergies Allergies/Adverse Reactions: Allergies Allergy/AdvReac Type Severity Reaction Status Date / Time No Known Drug Allergies Allergy Verified 01/26/21 18:01 - Social History Does the pt smoke?: No Smoking Status: Never smoker Does the pt drink ETOH?: No Does the pt have substance abuse?: No - Immunizations Immunizations are current?: No - POLST Patient has POLST: No PD ED PE NORMAL - Vitals Vital signs reviewed: Yes - General General: No acute distress, Well developed/nourished, Other (Alert, oriented to person only.) - HEENT HEENT: Atraumatic, PERRL, Ears normal, Moist mucous membranes - Neck Neck: Supple, no meningeal sign - Cardiac Cardiac: RRR, Strong equal pulses - Respiratory Respiratory: No respiratory distress, Clear bilaterally - Abdomen Abdomen: Soft, Non tender, Non distended - Derm Derm: Warm and dry - Extremities Extremities: No edema - Neuro Neuro: No motor deficit, No sensory deficit, Other (Alert, oriented to person only pleasant) Results - Vitals Vitals: Vital Signs - 24 hr 01/26/21 01/26/21 17:58 19:44 Temperature 36.8 C 36.8 C Heart Rate 85 86 Respiratory 20 22 Rate Blood Pressure 144/90 H 130/71 O2 Saturation 98 98 Oxygen O2 Source Room air - Labs Labs: Laboratory Tests 01/26/21 01/26/21 01/26/21 18:09 18:11 18:11 WBC 8.0 RBC 4.13 L Hgb 12.4 Hct 38.3 MCV 92.7 MCH 30.0 MCHC 32.4 RDW 13.4 Plt Count 271 MPV 9.1 Neut # (Auto) 5.9 Lymph # (Auto) 1.3 L [place] # (Auto) 0.6 Eos # (Auto) 0.2 Baso # (Auto) 0.0 Absolute Nucleated RBC 0.00 Nucleated RBC % 0.0 Sodium 139 Potassium 3.4 L Chloride 102 Carbon Dioxide 27 Anion Gap 10.0 BUN 22 H Creatinine 0.8 Estimated GFR (MDRD) 70 L Glucose 117 H Calcium 10.8 H Total Bilirubin 0.7 AST 20 ALT 20 Alkaline Phosphatase 35 L Total Protein 6.7 Albumin 4.2 Globulin 2.5 Albumin/Globulin Ratio 1.7 Urine Color YELLOW Urine Clarity CLEAR Urine pH 5.5 Ur Specific [place] 1.020 Urine Protein NEGATIVE Urine Glucose (UA) NEGATIVE Urine Ketones NEGATIVE Urine Occult Blood SMALL H Urine Nitrite NEGATIVE Urine Bilirubin NEGATIVE Urine Urobilinogen 1 (NORMAL) Ur Leukocyte Esterase NEGATIVE Urine RBC 0-5 Urine WBC 0-3 Ur Squamous Epith Cells FEW Squamous Urine Bacteria Rare Urine Mucus Few Strands Ur Microscopic Review INDICATED Urine Culture Comments NOT INDICATED PD MEDICAL DECISION MAKING - ED course Complexity details: reviewed results, re-evaluated patient, considered differential, d/w patient ED course: 75-year-old female with mild dehydration, but no other acute findings. She does have dementia. She is able to stand, get off the gurney by herself and go to the bathroom by herself here. Appears to be at her baseline. She has a sister who takes care of her at home and they are working on caregivers. No other acute abnormalities at this time. Patient states that she feels normal. Patient will be discharged home to follow-up with her doctor. This document was made in part using voice recognition software. While efforts are made to proofread this document, sound alike and grammatical errors may occur. Departure - Departure Disposition: 01 Home, Self Care Clinical Impression: Generalized weakness, Dehydration Condition: Good Instructions: ED Dehydration Follow-Up: your,doctor in 1 week [Other] Comments: Follow-up with your doctor for further care. You should also discuss with her doctor other options besides home health such as respite care or fdc care or a dementia facility. She was given IV fluids tonight. Other than dehydration, her blood work did not show any acute abnormalities. Discharge Date/Time: 01/26/21 19:46
[2021-01-26 18:15] LABS: BASOPHILS % (AUTO) 0.5 %; EOSINOPHILS # (AUTO) 0.2 10^3/uL (0.0-0.7); HCT - HEMATOCRIT 38.3 % (37.0-47.0); HGB - HEMOGLOBIN 12.4 g/dL (12.0-16.0); LYMPHOCYTES # (AUTO) 1.3 10^3/uL (1.5-3.5); LYMPHOCYTES % (AUTO) 15.9 %; MEAN CORPUSCULAR HGB CONC 32.4 g/dL (32.0-36.0); MEAN CORPUSCULAR VOLUME 92.7 fL (81.0-99.0); MEAN PLATELET VOLUME 9.1 fL (7.9-10.8); MONOCYTES # (AUTO) 0.6 10^3/uL (0.0-1.0); MONOCYTES % (AUTO) 7.7 %; NEUTROPHILS # (AUTO) 5.9 10^3/uL (1.5-6.6); NEUTROPHILS % (AUTO) 73.8 %; PLT - PLATELET COUNT 271 10^3/uL (130-450); RED BLOOD COUNT 4.13 10^6/uL (4.20-5.40); RED CELL DISTRIBUTION WIDTH 13.4 % (12.0-15.0)
[2021-01-26 18:17] LABS: BILIRUBIN,URINE NEGATIVE (NEGATIVE); GLUCOSE, URINE (UA) NEGATIVE (NEGATIVE); KETONES,URINE (UA) NEGATIVE (NEGATIVE); LEUKOCYTE ESTERASE, URINE NEGATIVE (NEGATIVE); NITRITE,URINE NEGATIVE (NEGATIVE); OCCULT BLOOD,URINE SMALL (NEGATIVE); PH,URINE 5.5 PH (5.0-7.5); PROTEIN,URINE NEGATIVE (NEGATIVE); UROBILINOGEN,URINE 1 (NORMAL) E.U./dL (NORMAL)
[2021-01-26 18:18] LABS: CLARITY,URINE CLEAR (CLEAR)
[2021-01-26 18:28] LABS: ALBUMIN 4.2 g/dL (3.2-5.5); ALBUMIN/GLOBULIN RATIO 1.7 (1.0-2.2); BILIRUBIN,TOTAL 0.7 mg/dL (0.2-1.0); CALCIUM 10.8 mg/dL (8.5-10.3); CREATININE 0.8 mg/dL (0.4-1.0); POTASSIUM 3.4 mmol/L (3.5-5.0); TOTAL PROTEIN 6.7 g/dL (6.7-8.2)
[2021-01-26 18:30] LABS: BACTERIA,URINE Rare /HPF (None Seen); MUCUS,URINE Few Strands; RBC,URINE 0-5 /HPF (0-5); SQUAMOUS EPITHELIAL CELL,UR FEW Squamous (<= Few); WBC,URINE 0-3 /HPF (0-5)
[2021-01-26 19:46] VITALS: BP 130/71
== END 2021-01-26 19:46 | disposition home or self-care (01) ==
LOC: EDUNIT# → ED 17:53
DX: E86.0 Dehydration (principal); R53.1 Weakness; G80.9 Cerebral palsy, unspecified; F03.90 Unspecified dementia, unspecified severity, without behavioral disturbance, psychotic disturbance, mood disturbance, and anxiety; I10 Essential (primary) hypertension; Z79.82 Long term (current) use of aspirin
CPT/HCPCS: 36415; 51701; 80053; 81001; 81003; 85025; 87086; 99283; 99284

== ENCOUNTER 2021-01-26 19:46 | Outpatient (CLI) | payer MEDICARE | END 2021-01-26 19:47 | disposition home or self-care (01) | LOC: EMS 19:46 | PROVIDERS: ATTEND Emergency Medicine | DX: F03.90 Unspecified dementia, unspecified severity, without behavioral disturbance, psychotic disturbance, mood disturbance, and anxiety (principal); R53.1 Weakness; E86.0 Dehydration | CPT/HCPCS: A0425; A0428 ==

== ENCOUNTER 2021-01-31 11:20 | Outpatient (CLI) | payer MEDICARE | END 2021-01-31 11:21 | disposition critical access hospital (66) | LOC: EMS 11:20 | PROVIDERS: ATTEND Emergency Medicine | DX: R52 Pain, unspecified (principal); R35.0 Frequency of micturition | CPT/HCPCS: A0425; A0429 ==

== ENCOUNTER 2021-01-31 11:40 | Emergency (ER) | payer MEDICARE ==
--- NOTE | 2021-01-31 12:36 | ED Physician Documentation ---
PD HPI FEMALE - Stated complaint Stated Complaint: FEMALE - Chief complaint Chief Complaint: Abd Pain - History obtained from History obtained from: Patient, Family (sister by phone) - Additional information Additional information: C/O urinary urgency and bladder pain. Poor memory so much of the hx from sister by phone. Review of Systems Unable to obtain: Confused PD PAST MEDICAL HISTORY - Past Medical History Cardiovascular: Hypertension Respiratory: Asthma Neuro: Dementia, Cerebral palsy Endocrine/Autoimmune: None GI: GERD ENVIRONMENTAL SERVICES COORDINATOR: None : None HEENT: Glaucoma Psych: None Musculoskeletal: None - Past Surgical History Past Surgical History: Yes - Present Medications Home Medications: Ambulatory Orders Medication Instructions Recorded Confirmed Losartan Potassium 50 mg PO DAILY 01/07/19 01/26/21 Albuterol Sulfate [Albuterol 2 puffs IH PRN PRN 10/02/19 01/26/21 Sulfate Hfa] Bimatoprost 0.01% Ophth Dops 1 drops EACHEYE HS 01/14/21 01/26/21 [Lumigan 0.01% Ophth Drops] Calcium Carbonate [Elemental 600 mg PO DAILY 01/14/21 01/26/21 Calcium] Cholecalciferol [Vitamin D3] 25 mcg PO DAILY 01/14/21 01/26/21 Fenofibrate Nanocrystallized 145 mg PO DAILY 01/14/21 01/26/21 [Tricor] Metoclopramide [Reglan] 10 mg PO Q6H PRN 01/14/21 01/26/21 Polyethylene Glycol 3350 [Glycolax] 1 cap ORAL DAILY 01/14/21 01/26/21 Aspirin [Aspirin EC] 81 mg PO DAILY 01/20/21 01/26/21 Furosemide [Lasix] 20 mg PO DAILY 01/20/21 01/26/21 Lansoprazole [Prevacid] 30 mg PO DAILY 01/20/21 01/26/21 Mecobalamin [B-12] 5,000 mcg PO DAILY 01/20/21 01/26/21 Ciprofloxacin [Cipro] 250 mg PO Q12H #6 tablet 01/31/21 - Allergies Allergies/Adverse Reactions: Allergies Allergy/AdvReac Type Severity Reaction Status Date / Time No Known Drug Allergies Allergy Verified 01/31/21 11:48 - Social History Does the pt smoke?: No Smoking Status: Never smoker Does the pt drink ETOH?: No Does the pt have substance abuse?: No - Immunizations Immunizations are current?: No - POLST Patient has POLST: No PD ED PE NORMAL - Vitals Vital signs reviewed: Yes - General General: Other (A/O x1) - HEENT HEENT: PERRL, EOMI - Neck Neck: Supple, no meningeal sign, No bony TTP - Cardiac Cardiac: RRR, No murmur - Respiratory Respiratory: No respiratory distress, Clear bilaterally - Abdomen Abdomen: Non tender - Back Back: No CVA TTP, No spinal TTP - Derm Derm: Normal color, Warm and dry - Extremities Extremities: No edema, No calf tenderness / cord - Neuro Eye Opening: Spontaneous Motor: Obeys Commands Verbal: Confused GCS Score: 14 Results - Vitals Vitals: Vital Signs - 24 hr 01/31/21 01/31/21 01/31/21 11:48 13:51 15:00 Temperature 37.2 C Heart Rate 90 77 89 Respiratory 18 18 19 Rate Blood Pressure 135/71 H 126/73 169/100 H O2 Saturation 95 97 98 Oxygen O2 Source Room air - Labs Labs: Laboratory Tests 01/31/21 01/31/21 01/31/21 12:38 12:38 12:38 WBC 7.4 RBC 4.16 L Hgb 12.6 Hct 38.7 MCV 93.0 MCH 30.3 MCHC 32.6 RDW 13.8 Plt Count 258 MPV 9.4 Neut # (Auto) 6.1 Lymph # (Auto) 0.7 L Harney # (Auto) 0.5 Eos # (Auto) 0.0 Baso # (Auto) 0.0 Absolute Nucleated RBC 0.00 Nucleated RBC % 0.0 Sodium 140 Potassium 3.8 Chloride 104 Carbon Dioxide 27 Anion Gap 9.0 BUN 24 H Creatinine 0.7 Estimated GFR (MDRD) 81 L Glucose 149 H Lactic Acid 1.7 Calcium 10.7 H Total Bilirubin 0.6 AST 25 ALT 26 Alkaline Phosphatase 33 L Total Protein 6.7 Albumin 4.1 Globulin 2.6 Albumin/Globulin Ratio 1.6 Lipase 27 Urine Color Urine Clarity Urine pH Ur Specific [place] Urine Protein Urine Glucose (UA) Urine Ketones Urine Occult Blood Urine Nitrite Urine Bilirubin Urine Urobilinogen Ur Leukocyte Esterase Urine RBC Urine WBC Ur Epithelial Cells Ur Squamous Epith Cells Urine Bacteria Ur Microscopic Review Urine Culture Comments 01/31/21 14:09 WBC RBC Hgb Hct MCV MCH MCHC RDW Plt Count MPV Neut # (Auto) Lymph # (Auto) Harney # (Auto) Eos # (Auto) Baso # (Auto) Absolute Nucleated RBC Nucleated RBC % Sodium Potassium Chloride Carbon Dioxide Anion Gap BUN Creatinine Estimated GFR (MDRD) Glucose Lactic Acid Calcium Total Bilirubin AST ALT Alkaline Phosphatase Total Protein Albumin Globulin Albumin/Globulin Ratio Lipase Urine Color YELLOW Urine Clarity SL. CLOUDY Urine pH 6.0 Ur Specific [place] 1.020 Urine Protein NEGATIVE Urine Glucose (UA) NEGATIVE Urine Ketones NEGATIVE Urine Occult Blood MODERATE H Urine Nitrite POSITIVE H Urine Bilirubin NEGATIVE Urine Urobilinogen 1 (NORMAL) Ur Leukocyte Esterase TRACE H Urine RBC 0-5 Urine WBC 4-5 Ur Epithelial Cells FEW Transitional Ur Squamous Epith Cells MOD Squamous H Urine Bacteria Many H Ur Microscopic Review INDICATED Urine Culture Comments NOT INDICATED PD MEDICAL DECISION MAKING - ED course ED course: Per sister by phone, with whom she lives. Sister is in poor health and with pt's decline she is having a lot of trouble caring for Sulma. They are trying to place her but pt has no money. counter supply worker became involved, she notes that the sister has not filled out her Medicaid application yet and as such no new placement opportunities are available today. Departure - Departure Disposition: Home, Self Care Clinical Impression: Cystitis Dementia Qualifiers: Dementia type: unspecified type Dementia behavioral disturbance: without behavioral disturbance Qualified Code(s): F03.90 - Unspecified dementia without behavioral disturbance Condition: Good Record reviewed to determine appropriate education?: Yes Instructions: ED Dementia Caregiver Support, ED UTI Cystitis Female Prescriptions: Ciprofloxacin [Cipro] 250 mg PO Q12H #6 tablet Comments: Make sure to fill out her Medicaid application so that you have more resources for potential placement. We will culture your urine, the results should be done in 48-72 hours. If an antibiotic change is necessary we will call you. Return if worse in the meantime, especially if you develop increasing flank pain, fevers, or cannot keep down the medication. Discharge Date/Time: 01/31/21 16:01
[2021-01-31 12:44] LABS: BASOPHILS % (AUTO) 0.4 %; EOSINOPHILS % (AUTO) 0.4 %; HCT - HEMATOCRIT 38.7 % (37.0-47.0); HGB - HEMOGLOBIN 12.6 g/dL (12.0-16.0); LYMPHOCYTES # (AUTO) 0.7 10^3/uL (1.5-3.5); LYMPHOCYTES % (AUTO) 9.2 %; MEAN CORPUSCULAR HEMOGLOBIN 30.3 pg (27.0-31.0); MEAN CORPUSCULAR HGB CONC 32.6 g/dL (32.0-36.0); MEAN PLATELET VOLUME 9.4 fL (7.9-10.8); MONOCYTES # (AUTO) 0.5 10^3/uL (0.0-1.0); MONOCYTES % (AUTO) 6.9 %; NEUTROPHILS # (AUTO) 6.1 10^3/uL (1.5-6.6); NEUTROPHILS % (AUTO) 82.8 %; PLT - PLATELET COUNT 258 10^3/uL (130-450); RED BLOOD COUNT 4.16 10^6/uL (4.20-5.40); RED CELL DISTRIBUTION WIDTH 13.8 % (12.0-15.0); WHITE BLOOD COUNT 7.4 x10^3/uL (4.8-10.8)
[2021-01-31 12:57] LABS: ALBUMIN 4.1 g/dL (3.2-5.5); ALBUMIN/GLOBULIN RATIO 1.6 (1.0-2.2); BILIRUBIN,TOTAL 0.6 mg/dL (0.2-1.0); CALCIUM 10.7 mg/dL (8.5-10.3); CREATININE 0.7 mg/dL (0.4-1.0); POTASSIUM 3.8 mmol/L (3.5-5.0); TOTAL PROTEIN 6.7 g/dL (6.7-8.2)
[2021-01-31 14:24] LABS: BILIRUBIN,URINE NEGATIVE (NEGATIVE); GLUCOSE, URINE (UA) NEGATIVE (NEGATIVE); KETONES,URINE (UA) NEGATIVE (NEGATIVE); LEUKOCYTE ESTERASE, URINE TRACE (NEGATIVE); NITRITE,URINE POSITIVE (NEGATIVE); OCCULT BLOOD,URINE MODERATE (NEGATIVE); PROTEIN,URINE NEGATIVE (NEGATIVE); UROBILINOGEN,URINE 1 (NORMAL) E.U./dL (NORMAL)
[2021-01-31 14:26] LABS: CLARITY,URINE SL. CLOUDY (CLEAR)
[2021-01-31] MEDS ORDERED: CIPROFLOXACIN 250 MG TABLET PO STA (14:32)
[2021-01-31 14:37] LABS: BACTERIA,URINE Many /HPF (None Seen); EPITHELIAL CELLS,UR FEW Transitional /HPF (<= Few); RBC,URINE 0-5 /HPF (0-5); SQUAMOUS EPITHELIAL CELL,UR MOD Squamous (<= Few)
[2021-01-31 15:03] VITALS: BP 169/100
== END 2021-01-31 16:01 | disposition home or self-care (01) ==
LOC: EDUNIT# → ED 11:40
DX: N30.90 Cystitis, unspecified without hematuria (principal); F03.90 Unspecified dementia, unspecified severity, without behavioral disturbance, psychotic disturbance, mood disturbance, and anxiety; G80.9 Cerebral palsy, unspecified; I10 Essential (primary) hypertension; Z79.82 Long term (current) use of aspirin
CPT/HCPCS: 36415; 51701; 80053; 81001; 83605; 83690; 85025; 87086; 99281; 99283; A9270; 81003

== ENCOUNTER 2021-01-31 16:03 | Outpatient (CLI) | payer MEDICARE | END 2021-01-31 16:04 | disposition home or self-care (01) | LOC: EMS 16:03 | PROVIDERS: ATTEND Emergency Medicine | DX: F03.90 Unspecified dementia, unspecified severity, without behavioral disturbance, psychotic disturbance, mood disturbance, and anxiety (principal); R41.0 Disorientation, unspecified | CPT/HCPCS: A0425; A0428 ==

== ENCOUNTER 2021-02-13 13:01 | Outpatient (CLI) | payer MEDICARE | END 2021-02-13 13:02 | disposition critical access hospital (66) | LOC: EMS 13:01 | PROVIDERS: ATTEND Registered Nurse | DX: R41.0 Disorientation, unspecified (principal) | CPT/HCPCS: A0425; A0429 ==

== ENCOUNTER 2021-02-13 13:19 | Emergency (ER) | payer MEDICARE ==
--- NOTE | 2021-02-13 13:39 | ED Physician Documentation ---
History of Present Illness - Stated complaint Stated Complaint: CONFUSION - Chief complaint Chief Complaint: General - Additonal information Additional information: 75-year-old female presents emergency department for evaluation of confusion that has been worsening. Patient was visited by home health nurse and after discussion with the sister at home felt that ER evaluation was appropriate. She was seen in this ER 01/31/2021 and found to have a urinary tract infection. She was prescribed Cipro. The sister reports that the patient has not been taking her meds or eating properly. The sister who is her caregiver is also recently become bedbound and is no longer able to help care for the patient who has fairly advanced dementia. Initial presentation in the room the patient is crying and tearful stating she cannot take it anymore and stating that she has to urinate. Spoke with the patient's Sister Gwyn on the phone. She reports that over the last month her dementia has significantly worsened. She typically now voids in a diaper and is having increased difficulty standing. Sister reports that over the last few days that she has eaten nothing and drink very little only a few sips of water. Gwyn does not feel that she can adequately care for her sister anymore given her own medical concerns. Review of Systems Unable to obtain: Dementia, Other (some history obtained by sister) PD PAST MEDICAL HISTORY - Past Medical History Cardiovascular: Hypertension Respiratory: Asthma Neuro: Dementia, Cerebral palsy Endocrine/Autoimmune: None GI: GERD ROD PULLER: None : None HEENT: Glaucoma Psych: None Musculoskeletal: None - Past Surgical History Past Surgical History: Yes - Present Medications Home Medications: Ambulatory Orders Medication Instructions Recorded Confirmed Losartan Potassium 50 mg PO DAILY 01/07/19 02/13/21 Albuterol Sulfate [Albuterol 2 puffs IH PRN PRN 10/02/19 02/13/21 Sulfate Hfa] Bimatoprost 0.01% Ophth Dops 1 drops EACHEYE HS 01/14/21 02/13/21 [Lumigan 0.01% Ophth Drops] Calcium Carbonate [Elemental 600 mg PO DAILY 01/14/21 02/13/21 Calcium] Cholecalciferol [Vitamin D3] 25 mcg PO DAILY 01/14/21 02/13/21 Fenofibrate Nanocrystallized 145 mg PO DAILY 01/14/21 02/13/21 [Tricor] Metoclopramide [Reglan] 10 mg PO Q6H PRN 01/14/21 02/13/21 Polyethylene Glycol 3350 [Glycolax] 1 cap ORAL DAILY 01/14/21 02/13/21 Aspirin [Aspirin EC] 81 mg PO DAILY 01/20/21 02/13/21 Furosemide [Lasix] 20 mg PO DAILY 01/20/21 02/13/21 Lansoprazole [Prevacid] 30 mg PO DAILY 01/20/21 02/13/21 Mecobalamin [B-12] 5,000 mcg PO DAILY 01/20/21 02/13/21 Ciprofloxacin [Cipro] 250 mg PO Q12H #6 tablet 01/31/21 02/13/21 - Allergies Allergies/Adverse Reactions: Allergies Allergy/AdvReac Type Severity Reaction Status Date / Time No Known Drug Allergies Allergy Verified 02/13/21 14:01 - Social History Does the pt smoke?: No Smoking Status: Never smoker Does the pt drink ETOH?: No Does the pt have substance abuse?: No - Immunizations Immunizations are current?: No - POLST Patient has POLST: No PD ED PE EXPANDED - General General: Alert, Anxious, Other (repetitive words, crying) - Cardiac Cardiac: Tachy, Regular Rhythm, Radial strong equal, Pedal strong equal, Cap refill < 2 sec - Respiratory Respiratory: Clear to ausultation shmuel. No: Distress, Labored - Abdomen Abdomen: Normal Bowel sounds. No: Tender to palpation - Derm Derm: Normal color, Warm and dry - Extremities Extremities: Normal. No: Deformity, Tenderness - Neuro Neuro: Confused, CNII-XII intact - GCS Eye Opening: Spontaneous Motor: Localizes to Pain Verbal: Confused Total: 13 Results - Vitals Vitals: Vital Signs - 24 hr 02/13/21 02/13/21 02/13/21 13:25 14:15 14:36 Temperature 36.6 C Heart Rate 110 H 110 H 111 H Respiratory 15 16 16 Rate Blood Pressure 105/72 103/66 O2 Saturation 96 96 02/13/21 02/13/21 02/13/21 15:11 15:45 15:58 Temperature 36.5 C 36.7 C Heart Rate 110 H 99 105 H Respiratory 15 15 16 Rate Blood Pressure 107/60 139/77 H 139/77 H O2 Saturation 98 99 98 02/13/21 02/13/21 02/13/21 16:05 16:30 17:00 Temperature 36.7 C Heart Rate 99 107 H 111 H Respiratory 15 16 14 Rate Blood Pressure 129/83 H 127/73 147/80 H O2 Saturation 98 95 95 02/13/21 02/13/21 02/13/21 17:03 18:08 18:50 Temperature 36.7 C Heart Rate 108 H 98 98 Respiratory 16 15 99 H Rate Blood Pressure 147/80 H 134/81 H 134/81 H O2 Saturation 97 99 100 02/13/21 02/13/21 19:00 20:09 Temperature Heart Rate 110 H 110 H Respiratory 16 16 Rate Blood Pressure 136/82 H 138/86 H O2 Saturation 93 Oxygen O2 Source Room air - EKG (time done) 1505 Rate: Rate (enter#) (98) Rhythm: NSR [place]: Anterior hemiblock Intervals: Normal IN QRS: Normal Ischemia: Non specific changes Compare to prior EKG: Unchanged from prior EKG Computer interpretation: Agree with computer - Labs Labs: Laboratory Tests 02/13/21 02/13/21 02/13/21 13:56 13:56 13:56 WBC 11.0 H RBC 4.80 Hgb 14.4 Hct 44.1 MCV 91.9 MCH 30.0 MCHC 32.7 RDW 13.7 Plt Count 335 MPV 10.5 Neut # (Auto) 9.3 H Lymph # (Auto) 0.9 L [place] # (Auto) 0.8 Eos # (Auto) 0.0 Baso # (Auto) 0.0 Absolute Nucleated RBC 0.00 Nucleated RBC % 0.0 Sodium 137 Potassium 4.0 Chloride 98 L Carbon Dioxide 24 Anion Gap 15.0 H BUN 43 H Creatinine 1.0 Estimated GFR (MDRD) 54 L Glucose 170 H Lactic Acid 2.4 H Calcium 11.4 H Total Bilirubin 0.6 AST 34 ALT 31 Alkaline Phosphatase 41 L Troponin I High Sens Total Protein 7.6 Albumin 4.4 Globulin 3.2 Albumin/Globulin Ratio 1.4 Urine Color Urine Clarity Urine pH Ur Specific [place] Urine Protein Urine Glucose (UA) Urine Ketones Urine Occult Blood Urine Nitrite Urine Bilirubin Urine Urobilinogen Ur Leukocyte Esterase Urine RBC Urine WBC Ur Squamous Epith Cells Urine Bacteria Urine Culture Comments Nasal Adenovirus (PCR) Nasal B. parapertussis DNA (PCR) Nasal Coronavir 229E PCR Nasal Coronavir HKU1 PCR Nasal Coronavir NL63 PCR Nasal Coronavir OC43 PCR Nasal Enterovir/Rhinovir PCR Nasal Influenza B PCR Nasal Influenza A PCR Nasal Parainfluen 1 PCR Nasal Parainfluen 2 PCR Nasal Parainfluen 3 PCR Nasal Parainfluen 4 PCR Nasal RSV (PCR) Nasal B.pertussis DNA PCR Nasal C.pneumoniae (PCR) Didier Human Metapneumo PCR Nasal M.pneumoniae (PCR) Nasal SARS-CoV-2 (PCR) 02/13/21 02/13/21 02/13/21 13:56 14:13 15:55 WBC RBC Hgb Hct MCV MCH MCHC RDW Plt Count MPV Neut # (Auto) Lymph # (Auto) [place] # (Auto) Eos # (Auto) Baso # (Auto) Absolute Nucleated RBC Nucleated RBC % Sodium Potassium Chloride Carbon Dioxide Anion Gap BUN Creatinine Estimated GFR (MDRD) Glucose Lactic Acid Calcium Total Bilirubin AST ALT Alkaline Phosphatase Troponin I High Sens 12.2 Total Protein Albumin Globulin Albumin/Globulin Ratio Urine Color YELLOW Urine Clarity CLEAR Urine pH 6.0 Ur Specific [place] 1.025 Urine Protein NEGATIVE Urine Glucose (UA) NEGATIVE Urine Ketones NEGATIVE Urine Occult Blood NEGATIVE Urine Nitrite NEGATIVE Urine Bilirubin NEGATIVE Urine Urobilinogen 1 (NORMAL) Ur Leukocyte Esterase NEGATIVE Urine RBC None Seen Urine WBC 0-3 Ur Squamous Epith Cells RARE Squamous Urine Bacteria None Seen Urine Culture Comments NOT INDICATED Nasal Adenovirus (PCR) NOT DETECTED Nasal B. parapertussis DNA (PCR) NOT DETECTED Nasal Coronavir 229E PCR NOT DETECTED Nasal Coronavir HKU1 PCR NOT DETECTED Nasal Coronavir NL63 PCR NOT DETECTED Nasal Coronavir OC43 PCR NOT DETECTED Nasal Enterovir/Rhinovir PCR NOT DETECTED Nasal Influenza B PCR NOT DETECTED Nasal Influenza A PCR NOT DETECTED Nasal Parainfluen 1 PCR NOT DETECTED Nasal Parainfluen 2 PCR NOT DETECTED Nasal Parainfluen 3 PCR NOT DETECTED Nasal Parainfluen 4 PCR NOT DETECTED Nasal RSV (PCR) NOT DETECTED Nasal B.pertussis DNA PCR NOT DETECTED Nasal C.pneumoniae (PCR) NOT DETECTED Didier Human Metapneumo PCR NOT DETECTED Nasal M.pneumoniae (PCR) NOT DETECTED Nasal SARS-CoV-2 (PCR) NOT DETECTED 02/13/21 16:15 WBC RBC Hgb Hct MCV MCH MCHC RDW Plt Count MPV Neut # (Auto) Lymph # (Auto) [place] # (Auto) Eos # (Auto) Baso # (Auto) Absolute Nucleated RBC Nucleated RBC % Sodium Potassium Chloride Carbon Dioxide Anion Gap BUN Creatinine Estimated GFR (MDRD) Glucose Lactic Acid 1.3 Calcium Total Bilirubin AST ALT Alkaline Phosphatase Troponin I High Sens Total Protein Albumin Globulin Albumin/Globulin Ratio Urine Color Urine Clarity Urine pH Ur Specific [place] Urine Protein Urine Glucose (UA) Urine Ketones Urine Occult Blood Urine Nitrite Urine Bilirubin Urine Urobilinogen Ur Leukocyte Esterase Urine RBC Urine WBC Ur Squamous Epith Cells Urine Bacteria Urine Culture Comments Nasal Adenovirus (PCR) Nasal B. parapertussis DNA (PCR) Nasal Coronavir 229E PCR Nasal Coronavir HKU1 PCR Nasal Coronavir NL63 PCR Nasal Coronavir OC43 PCR Nasal Enterovir/Rhinovir PCR Nasal Influenza B PCR Nasal Influenza A PCR Nasal Parainfluen 1 PCR Nasal Parainfluen 2 PCR Nasal Parainfluen 3 PCR Nasal Parainfluen 4 PCR Nasal RSV (PCR) Nasal B.pertussis DNA PCR Nasal C.pneumoniae (PCR) [place] Human Metapneumo PCR Nasal M.pneumoniae (PCR) Nasal SARS-CoV-2 (PCR) - Rads (name of study) CXR Radiology: Final report received (CHF changes, no pna. Large hiatial hernia) PD MEDICAL DECISION MAKING - ED course Complexity details: reviewed results, re-evaluated patient, considered differential, d/w patient ED course: To eat or take her -[id number] female was brought to the emergency department on the request of home health aide as well as her sister for javier luation of worsening dementia, medications as well as complaining of pain. History is difficult to obtain from the patient given her dementia she initially presented crying and yelling though she did calm on her own. Screening labs reveal very mild leukocytosis and lactic acid elevation. Urine does not reveal signs of infection. Chest x-ray shows no pneumonia though there is a very large hiatal hernia. Patient was given 2 L of crystalloid. However the sister does not feel that she can adequately care for the patient at home anymore. EKG is non ischemic, negative high sensitivity troponin. At about 2 PM I did speak with our admitting hospitalist Dr. Barger who did not feel that the patient was appropriate for admission to [facility]. However patient is a [facility] patient therefore I reached out to [facility] to discuss possibility of a medical transfer with the understanding that disposition will be difficult. 1545: I have spoke with Dr. Burger the [facility] physician to discuss the ability to transfer the patient. She feels the patient would need the requirements for medical management therefore we will continue to look for a bed to transfer her to. 1645: I have spoken with [facility] Physician Dr. Burger in transfer center. No beds are currently available at either [facility] or [facility]'s. Patient is currently on a wait list and we will continue to board her here in the emergency department until a bed becomes available. 1710: Pt has been intermittently agitated, thrashing about in bed, crying; will rx 2 mg po halodol and reassess. 1730: Dr. Norma Garber is accepting physician at [facility], still awaiting a bed assignment. [facility] paperwork completed 2019: [facility] has notified us that as of yet they still do not have beds at [facility]. They state it may be a while before a bed is available. The patient will continue to board here in the emergency department overnight. Reassuringly after some Haldol her agitation has been improved. Her initial lactic acidosis has resolved. Ultimately a safe disposition for this patient will be a challenge as her sister does not feel safe caring for her at home anymore as she has her own physical challenges. Patient has been seen by her executive secretary social welfare who did get the paperwork filled out for [facility] as well as the Medicaid application. If she remains in the emergency department overnight we may need to reevaluate whether patient is appropriate for admission or observation here at [facility] tomorrow in the a.m. Departure - Departure Disposition: 02 Transfer Acute Care Hosp Clinical Impression: Dehydration, Elevated lactic acid level Dementia Qualifiers: Dementia type: unspecified type Dementia behavioral disturbance: with behavioral disturbance Qualified Code(s): F03.91 - Unspecified dementia with behavioral disturbance
[2021-02-13 14:08] LABS: BASOPHILS % (AUTO) 0.3 %; EOSINOPHILS % (AUTO) 0.1 %; HCT - HEMATOCRIT 44.1 % (37.0-47.0); HGB - HEMOGLOBIN 14.4 g/dL (12.0-16.0); LYMPHOCYTES # (AUTO) 0.9 10^3/uL (1.5-3.5); LYMPHOCYTES % (AUTO) 8.3 %; MEAN CORPUSCULAR HGB CONC 32.7 g/dL (32.0-36.0); MEAN CORPUSCULAR VOLUME 91.9 fL (81.0-99.0); MEAN PLATELET VOLUME 10.5 fL (7.9-10.8); MONOCYTES # (AUTO) 0.8 10^3/uL (0.0-1.0); NEUTROPHILS # (AUTO) 9.3 10^3/uL (1.5-6.6); NEUTROPHILS % (AUTO) 83.9 %; PLT - PLATELET COUNT 335 10^3/uL (130-450); RED CELL DISTRIBUTION WIDTH 13.7 % (12.0-15.0)
[2021-02-13 14:15] LABS: ALBUMIN 4.4 g/dL (3.2-5.5); ALBUMIN/GLOBULIN RATIO 1.4 (1.0-2.2); BILIRUBIN,TOTAL 0.6 mg/dL (0.2-1.0); CALCIUM 11.4 mg/dL (8.5-10.3); TOTAL PROTEIN 7.6 g/dL (6.7-8.2)
[2021-02-13 14:16] LABS: LACTIC ACID, VENOUS 2.4 mmol/L (0.5-2.2)
[2021-02-13 14:20] LABS: BILIRUBIN,URINE NEGATIVE (NEGATIVE); GLUCOSE, URINE (UA) NEGATIVE (NEGATIVE); KETONES,URINE (UA) NEGATIVE (NEGATIVE); LEUKOCYTE ESTERASE, URINE NEGATIVE (NEGATIVE); NITRITE,URINE NEGATIVE (NEGATIVE); OCCULT BLOOD,URINE NEGATIVE (NEGATIVE); PROTEIN,URINE NEGATIVE (NEGATIVE); UROBILINOGEN,URINE 1 (NORMAL) E.U./dL (NORMAL)
[2021-02-13 14:30] LABS: CLARITY,URINE CLEAR (CLEAR); WBC,URINE 0-3 /HPF (0-5)
[2021-02-13 14:31] LABS: BACTERIA,URINE None Seen /HPF (None Seen); RBC,URINE None Seen /HPF (0-5); SQUAMOUS EPITHELIAL CELL,UR RARE Squamous (<= Few)
[2021-02-13] MEDS ORDERED: SODIUM CHLORIDE 0.9% 1,000 ML IV STA ×2 (14:41)
--- NOTE | 2021-02-13 15:12 | XRAY Report ---
PROCEDURE: Chest 1 View X-Ray INDICATIONS: chest pain TECHNIQUE: One view of the chest was acquired. COMPARISON: 01/20/2021 and 01/07/2021 FINDINGS: Surgical changes and devices: None. Lungs and pleura: No pleural effusions or pneumothorax. Mild pulmonary vascular congestion is seen. Increased interstitial reticular markings are noted bilaterally suggestive of mild pulmonary edema. Mediastinum: Mediastinal contours appear normal. Heart size is normal. Bones and chest wall: No suspicious bony lesions. Overlying soft tissues appear unremarkable. IMPRESSION: CHF changes. No definite focal infiltrate. No pneumothorax. Reviewed by: Fuentes Oswald MD on 02/13/2021 3:11 PM PDT Approved by: Fuentes Oswald MD on 02/13/2021 3:11 PM PDT Station ID: [id number]
[2021-02-13 16:55] LABS: B. PARAPERTUSSIS- RESP PCR PAN NOT DETECTED; CORONAVIRUS 229E-RESP PCR NOT DETECTED; CORONAVIRUS HKU1-RESP PCR NOT DETECTED; CORONAVIRUS NL63-RESP PCR NOT DETECTED; CORONAVIRUS OC43-RESP PCR NOT DETECTED; HUMAN METAPNEUMOVIRUS NOT DETECTED; INFLUENZA A- RESP PCR PANEL NOT DETECTED; INFLUENZA B - RESP PCR PANEL NOT DETECTED; PARAINFLUENZA VIRUS 1 NOT DETECTED; PARAINFLUENZA VIRUS 2 NOT DETECTED; PARAINFLUENZA VIRUS 3 NOT DETECTED; PARAINFLUENZA VIRUS 4 NOT DETECTED; RHINOVIRUS/ENTEROVIRUS NOT DETECTED; RSV- RESP PCR PANEL NOT DETECTED; SARS-CoV-2 -RESP PCR PANEL NOT DETECTED
[2021-02-13 16:56] LABS: B. PERTUSSIS- RESP PCR PANEL NOT DETECTED; C. PNEUMONIAE- RESP PCR PANEL NOT DETECTED; M. PNEUMONIAE- RESP PCR PANEL NOT DETECTED
[2021-02-13] MEDS ORDERED: haloperidoL 1 MG TABLET PO STA ×2 (17:09→20:19)
[2021-02-13] MEDS ORDERED: OLANZapine ODT 5 MG TABLET TL ONE (21:40)
[2021-02-14 05:59] LABS: BASOPHILS % (AUTO) 0.4 %; EOSINOPHILS # (AUTO) 0.1 10^3/uL (0.0-0.7); EOSINOPHILS % (AUTO) 1.2 %; HCT - HEMATOCRIT 40.4 % (37.0-47.0); HGB - HEMOGLOBIN 13.1 g/dL (12.0-16.0); LYMPHOCYTES # (AUTO) 1.3 10^3/uL (1.5-3.5); LYMPHOCYTES % (AUTO) 12.7 %; MEAN CORPUSCULAR HGB CONC 32.4 g/dL (32.0-36.0); MEAN CORPUSCULAR VOLUME 92.4 fL (81.0-99.0); MEAN PLATELET VOLUME 10.1 fL (7.9-10.8); MONOCYTES # (AUTO) 0.9 10^3/uL (0.0-1.0); MONOCYTES % (AUTO) 8.9 %; NEUTROPHILS # (AUTO) 7.5 10^3/uL (1.5-6.6); NEUTROPHILS % (AUTO) 76.4 %; PLT - PLATELET COUNT 264 10^3/uL (130-450); RED BLOOD COUNT 4.37 10^6/uL (4.20-5.40); RED CELL DISTRIBUTION WIDTH 13.7 % (12.0-15.0); WHITE BLOOD COUNT 9.9 x10^3/uL (4.8-10.8)
[2021-02-14 06:13] LABS: ALBUMIN 3.8 g/dL (3.2-5.5); ALBUMIN/GLOBULIN RATIO 1.4 (1.0-2.2); BILIRUBIN,TOTAL 0.8 mg/dL (0.2-1.0); CALCIUM 10.2 mg/dL (8.5-10.3); CREATININE 0.6 mg/dL (0.4-1.0); POTASSIUM 3.7 mmol/L (3.5-5.0); TOTAL PROTEIN 6.5 g/dL (6.7-8.2)
[2021-02-14] MEDS ORDERED: haloperidoL 1 MG TABLET PO SCH (09:00)
[2021-02-14 15:07] VITALS: BP 130/83
== END 2021-02-14 15:42 | disposition home or self-care (01) ==
LOC: EDUNIT# → ED 13:19
DX: F03.91 Unspecified dementia, unspecified severity, with behavioral disturbance (principal); E86.0 Dehydration; I44.4 Left anterior fascicular block; R74.02 Elevation of levels of lactic acid dehydrogenase [LDH]; I10 Essential (primary) hypertension; K44.9 Diaphragmatic hernia without obstruction or gangrene; R45.1 Restlessness and agitation; Z20.822 Contact with and (suspected) exposure to COVID-19; Z74.2 Need for assistance at home and no other household member able to render care
CPT/HCPCS: 36415; 51701; 71045; 80053; 81001; 83605; 83690; 84484; 85025; 87040; 87631; 93005; 96360; 99281; 99284; A9270; 0202U; 87086

== ENCOUNTER 2021-02-14 15:44 | Outpatient (CLI) | payer MEDICARE | END 2021-02-14 23:59 | disposition home or self-care (01) | LOC: EMS 15:44 | PROVIDERS: ATTEND Emergency Medicine | DX: R41.0 Disorientation, unspecified (principal); Z74.01 Bed confinement status | CPT/HCPCS: A0425; A0428 ==

== ENCOUNTER 2021-02-15 08:18 | Outpatient (CLI) | payer MEDICARE | END 2021-02-15 08:19 | disposition critical access hospital (66) | LOC: EMS 08:18 | PROVIDERS: ATTEND Emergency Medicine | DX: Z74.2 Need for assistance at home and no other household member able to render care (principal) | CPT/HCPCS: A0425; A0429 ==

== ENCOUNTER 2021-02-15 08:37 | Observation (INO) | payer MEDICARE ==
[2021-02-15 09:22] LABS: BASOPHILS % (AUTO) 0.3 %; EOSINOPHILS # (AUTO) 0.1 10^3/uL (0.0-0.7); EOSINOPHILS % (AUTO) 0.9 %; HCT - HEMATOCRIT 43.6 % (37.0-47.0); HGB - HEMOGLOBIN 14.2 g/dL (12.0-16.0); LYMPHOCYTES % (AUTO) 8.6 %; MEAN CORPUSCULAR HEMOGLOBIN 30.1 pg (27.0-31.0); MEAN CORPUSCULAR HGB CONC 32.6 g/dL (32.0-36.0); MEAN CORPUSCULAR VOLUME 92.4 fL (81.0-99.0); MEAN PLATELET VOLUME 10.8 fL (7.9-10.8); MONOCYTES # (AUTO) 0.8 10^3/uL (0.0-1.0); MONOCYTES % (AUTO) 6.5 %; NEUTROPHILS # (AUTO) 10.1 10^3/uL (1.5-6.6); NEUTROPHILS % (AUTO) 83.4 %; PLT - PLATELET COUNT 306 10^3/uL (130-450); RED BLOOD COUNT 4.72 10^6/uL (4.20-5.40); RED CELL DISTRIBUTION WIDTH 13.6 % (12.0-15.0); WHITE BLOOD COUNT 12.1 x10^3/uL (4.8-10.8)
[2021-02-15 09:47] LABS: ALBUMIN 3.8 g/dL (3.2-5.5); ALBUMIN/GLOBULIN RATIO 1.5 (1.0-2.2); BILIRUBIN,TOTAL 1.2 mg/dL (0.2-1.0); CALCIUM 10.5 mg/dL (8.5-10.3); CREATININE 0.9 mg/dL (0.4-1.0); TOTAL PROTEIN 6.3 g/dL (6.7-8.2)
[2021-02-15 09:48] LABS: POTASSIUM 4.2 mmol/L (3.5-5.0)
[2021-02-15 09:52] LABS: BILIRUBIN,URINE NEGATIVE (NEGATIVE); GLUCOSE, URINE (UA) NEGATIVE (NEGATIVE); KETONES,URINE (UA) NEGATIVE (NEGATIVE); LEUKOCYTE ESTERASE, URINE NEGATIVE (NEGATIVE); NITRITE,URINE NEGATIVE (NEGATIVE); OCCULT BLOOD,URINE SMALL (NEGATIVE); PROTEIN,URINE NEGATIVE (NEGATIVE); UROBILINOGEN,URINE 0.2 (NORMAL) E.U./dL (NORMAL)
--- NOTE | 2021-02-15 09:58 | ED Physician Documentation ---
History of Present Illness - Stated complaint Stated Complaint: WEAKNESS - Chief complaint Chief Complaint: General - History obtained from History obtained from: Patient, EMS - History of Present Illness Timing: Today - Additonal information Additional information: 75-year-old female with advanced dementia and an issue with her living situation was found by her sister this morning to be unresponsive. When medics arrived the patient would respond to them but she is unable to give them any specific information. She has advanced dementia is not eating or drinking well. She is living with her sister who is been evicted from their domicile. The sister is having some difficulty caring for the patient on a regular basis and has brought the patient to the hospital multiple times for evaluation. She was in the emergency department yesterday awaiting evaluation by [facility] and as there would be a significant delay she was discharged home. The patient does have a POLST that indicates comfort measures only. 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: None : None HEENT: Glaucoma Psych: None Musculoskeletal: None - Past Surgical History Past Surgical History: Yes - Present Medications Home Medications: Ambulatory Orders Medication Instructions Recorded Confirmed Losartan Potassium 50 mg PO DAILY 01/07/19 02/13/21 Albuterol Sulfate [Albuterol 2 puffs IH PRN PRN 10/02/19 02/13/21 Sulfate Hfa] Bimatoprost 0.01% Ophth Dops 1 drops EACHEYE HS 01/14/21 02/13/21 [Lumigan 0.01% Ophth Drops] Calcium Carbonate [Elemental 600 mg PO DAILY 01/14/21 02/13/21 Calcium] Cholecalciferol [Vitamin D3] 25 mcg PO DAILY 01/14/21 02/13/21 Fenofibrate Nanocrystallized 145 mg PO DAILY 01/14/21 02/13/21 [Tricor] Metoclopramide [Reglan] 10 mg PO Q6H PRN 01/14/21 02/13/21 Polyethylene Glycol 3350 [Glycolax] 1 cap ORAL DAILY 01/14/21 02/13/21 Aspirin [Aspirin EC] 81 mg PO DAILY 01/20/21 02/13/21 Furosemide [Lasix] 20 mg PO DAILY 01/20/21 02/13/21 Lansoprazole [Prevacid] 30 mg PO DAILY 01/20/21 02/13/21 Mecobalamin [B-12] 5,000 mcg PO DAILY 01/20/21 02/13/21 Ciprofloxacin [Cipro] 250 mg PO Q12H #6 tablet 01/31/21 02/13/21 - Allergies Allergies/Adverse Reactions: Allergies Allergy/AdvReac Type Severity Reaction Status Date / Time No Known Drug Allergies Allergy Verified 02/15/21 08:47 - Social History Does the pt smoke?: No Smoking Status: Never smoker Does the pt drink ETOH?: No Does the pt have substance abuse?: No - Immunizations Immunizations are current?: No - POLST Patient has POLST: No PD ED PE NORMAL - Vitals Vital signs reviewed: Yes (normal ) - General General: No acute distress, Well developed/nourished, Other (does not know place, name or date. 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: court security officer 2-12 intact, No motor deficit, No sensory deficit, Normal speech Eye Opening: Spontaneous Motor: Obeys Commands Verbal: Confused GCS Score: 14 - Psych Psych: Normal mood, Normal affect Results - Vitals Vitals: Vital Signs - 24 hr 02/15/21 02/15/21 02/15/21 08:42 10:47 12:02 Temperature 36.5 C Heart Rate 98 100 97 Respiratory 16 18 Rate Blood Pressure 121/74 138/75 H 145/100 H O2 Saturation 94 99 100 02/15/21 14:00 Temperature Heart Rate 102 H Respiratory 16 Rate Blood Pressure 126/78 O2 Saturation 95 Oxygen O2 Source Room air - Labs Labs: Laboratory Tests 02/15/21 02/15/21 02/15/21 09:07 09:07 09:07 WBC 12.1 H RBC 4.72 Hgb 14.2 Hct 43.6 MCV 92.4 MCH 30.1 MCHC 32.6 RDW 13.6 Plt Count 306 MPV 10.8 Neut # (Auto) 10.1 H Lymph # (Auto) 1.0 L [place] # (Auto) 0.8 Eos # (Auto) 0.1 Baso # (Auto) 0.0 Absolute Nucleated RBC 0.00 Nucleated RBC % 0.0 Sodium 136 Potassium 4.2 Chloride 102 Carbon Dioxide 24 Anion Gap 10.0 BUN 29 H Creatinine 0.9 Estimated GFR (MDRD) 61 L Glucose 130 H Lactic Acid 1.1 Calcium 10.5 H Total Bilirubin 1.2 H AST 38 ALT 26 Alkaline Phosphatase 40 L Total Protein 6.3 L Albumin 3.8 Globulin 2.5 Albumin/Globulin Ratio 1.5 Lipase 23 Urine Color Urine Clarity Urine pH Ur Specific [place] Urine Protein Urine Glucose (UA) Urine Ketones Urine Occult Blood Urine Nitrite Urine Bilirubin Urine Urobilinogen Ur Leukocyte Esterase Urine RBC Urine WBC Ur Squamous Epith Cells Urine Bacteria Ur Microscopic Review Urine Culture Comments 02/15/21 09:46 WBC RBC Hgb Hct MCV MCH MCHC RDW Plt Count MPV Neut # (Auto) Lymph # (Auto) [place] # (Auto) Eos # (Auto) Baso # (Auto) Absolute Nucleated RBC Nucleated RBC % Sodium Potassium Chloride Carbon Dioxide Anion Gap BUN Creatinine Estimated GFR (MDRD) Glucose Lactic Acid Calcium Total Bilirubin AST ALT Alkaline Phosphatase Total Protein Albumin Globulin Albumin/Globulin Ratio Lipase Urine Color DARK YELLOW Urine Clarity CLEAR Urine pH 6.0 Ur Specific [place] 1.025 Urine Protein NEGATIVE Urine Glucose (UA) NEGATIVE Urine Ketones NEGATIVE Urine Occult Blood SMALL H Urine Nitrite NEGATIVE Urine Bilirubin NEGATIVE Urine Urobilinogen 0.2 (NORMAL) Ur Leukocyte Esterase NEGATIVE Urine RBC 0-5 Urine WBC 0-3 Ur Squamous Epith Cells RARE Squamous Urine Bacteria Rare Ur Microscopic Review INDICATED Urine Culture Comments NOT INDICATED - Rads (name of study) chest Radiology: Prelim report reviewed (Impression: Left pleural effusion with overlying airspace opacity, new from the prior study and representing consolidation versus atelectasis. Follow-up to resolution is recommended.), EMP read indepedently (On my read the patient is failing. She had 8 ribs showing on the X-ray from 3-18 and today 6 1/2 ribs showing. I believe the L side is similar to prior. ), See rad report Procedures - IVC sono (time) 0850 Bedside IVC sono: IVC measures (cm) (0.65), Significant dehydration (est 3 liter deficit) PD MEDICAL DECISION MAKING - ED course Complexity details: reviewed old records, reviewed results, re-evaluated patient, considered differential, d/w patient, d/w family ED course: 75-year-old female with advanced dementia was presented to the emergency department today with increasing weakness. The patient's sister who is caring for her at home is no longer able to care for the patient as she requires more than 1 person to get her out of bed and the patient had previously been able to assist with this herself. The patient is refusing fluids and food. When she arrived to the emergency department she was animated and spoke to us but made absolutely no sense. On evaluation she was found to be significantly dehydrated on interrogation the inferior vena cava and we did not begin intravenous saline as her POLST form indicates comfort measures only. I had a conversation with the patient patient's sister and she indicates that she does not want intravenous fluids administered and she is comfortable with a exit strategy of having her sister not drink fluids. We have asked social work to explore hospice and we discontinued the monitor. She has an IV in place and this is used for comfort measures. She becomes agitated and sad that she is not attending denominational today and she is given IV ativan. Departure - Departure Disposition: ED Place in Observation Clinical Impression: Dehydration, End of life care Dementia Qualifiers: Dementia type: unspecified type Dementia behavioral disturbance: with behavioral disturbance Qualified Code(s): F03.91 - Unspecified dementia with behavioral disturbance Condition: Poor
[2021-02-15 10:25] LABS: CLARITY,URINE CLEAR (CLEAR)
[2021-02-15 10:41] LABS: BACTERIA,URINE Rare /HPF (None Seen); RBC,URINE 0-5 /HPF (0-5); SQUAMOUS EPITHELIAL CELL,UR RARE Squamous (<= Few); WBC,URINE 0-3 /HPF (0-5)
--- NOTE | 2021-02-15 14:06 | XRAY Report ---
PROCEDURE: Chest 1 View X-Ray INDICATIONS: Chest pain TECHNIQUE: One view of the chest was acquired. COMPARISON: 02/13/2021 FINDINGS: Surgical changes and devices: None. Lungs and pleura: Left pleural effusion and overlying airspace opacity. Mediastinum: Mediastinal contours appear normal. Heart size is normal. Bones and chest wall: No suspicious bony lesions. Overlying soft tissues appear unremarkable. IMPRESSION: Left pleural effusion and overlying airspace opacity, new from the prior study and representing conso lidation versus atelectasis. Follow-up to resolution recommended. Reviewed by: Mayo Luciano MD on 02/15/2021 2:05 PM PDT Approved by: Mayo Luciano MD on 02/15/2021 2:05 PM PDT Station ID: [id number]
[2021-02-15] MEDS ORDERED: LORazepam 2 MG/ML VIAL IVP STA (15:19)
--- NOTE | 2021-02-15 16:42 | HISTORY & PHYSICAL EXAMINATION ---
Chief Complaint - Chief Complaint Chief Complaint: Unresponsive History of Present Illness - Admitted From Admitted From:: Home - History Obtained From Records Reviewed: Yes History obtained from: ER Physician, Sister, EMR Exam Limitations: Patient has dementia and is unable to provide a history. - History of Present Illness HPI Comment/Other: This is a 75-year-old female with a past medical history significant for advance d dementia, hypertension who presents today from home after her sister found her unresponsive this morning. She was brought to the ER a couple of days ago as her sister cannot take care of her any further due to her worsening dementia. At that time, it was felt that she would likely need placement and so [facility] was contacted for admission and she was accepted in transfer but ultimately there were no beds available and she was discharged from the ER the following day back home after meeting with social work. Her sister tells me that since the patient has been home, she has had 2 falls and has had no oral intake whatsoever. Gwyn tells me that the patient has had dementia now for over 4 years but has really declined over the past 5 to 6 weeks. Gwyn states the patient has occasional lucid moments and this morning the patient told her that she "needed to go to the hospital and to just let her ." Patient has a POLST form which states that she is a DNR with the focus on comfort measures. Gwyn told the ER physician that she does not want any IV fluids or treatment for any potential medical problems. Plan is to just focus on her comfort and to help with disposition. I spoke with Gwyn today and she confirms this. She does not believe the patient can go back home as she is moving from her home at the end of the month and there are a lot of boxes around and it would not be an appropriate place for end-of-life. She would like the patient to go to a facility on hospice. 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 Her mother at the age of 80 from heart failure. She is a younger sister with colon cancer. She had a sister who from an unspecified malignancy. Her brother has coronary artery disease. No immediate family members with dementia. Living arrangement: At home Living Situation: With family Social History Notes: She lives at home with her sister, Gwyn, who is her primary caregiver. - POLST Patient has POLST: No Meds/Allgy - Home Medications Home Medications: Ambulatory Orders Medication Instructions Recorded Confirmed Losartan Potassium 50 mg PO DAILY 01/07/19 02/13/21 Albuterol Sulfate [Albuterol 2 puffs IH PRN PRN 10/02/19 02/13/21 Sulfate Hfa] Bimatoprost 0.01% Ophth Dops 1 drops EACHEYE HS 01/14/21 02/13/21 [Lumigan 0.01% Ophth Drops] Calcium Carbonate [Elemental 600 mg PO DAILY 01/14/21 02/13/21 Calcium] Cholecalciferol [Vitamin D3] 25 mcg PO DAILY 01/14/21 02/13/21 Fenofibrate Nanocrystallized 145 mg PO DAILY 01/14/21 02/13/21 [Tricor] Metoclopramide [Reglan] 10 mg PO Q6H PRN 01/14/21 02/13/21 Polyethylene Glycol 3350 [Glycolax] 1 cap ORAL DAILY 01/14/21 02/13/21 Aspirin [Aspirin EC] 81 mg PO DAILY 01/20/21 02/13/21 Furosemide [Lasix] 20 mg PO DAILY 01/20/21 02/13/21 Lansoprazole [Prevacid] 30 mg PO DAILY 01/20/21 02/13/21 Mecobalamin [B-12] 5,000 mcg PO DAILY 01/20/21 02/13/21 Ciprofloxacin [Cipro] 250 mg PO Q12H #6 tablet 01/31/21 02/13/21 - Allergies Allergies/Adverse Reactions: Allergies Allergy/AdvReac Type Severity Reaction Status Date / Time No Known Drug Allergies Allergy Verified 02/15/21 08:47 Review of Systems - All Other Systems All Other Systems: reports: Other (Unable to obtain due to her dementia.) Prior Level of Functionality: Given her advanced dementia, she was dependent for ADLs. Exam - Vital Signs Reviewed Vital Signs: Yes Vital Signs: Vital Signs x48h Temp Pulse Resp BP Pulse Ox 02/15/21 14:00 102 H 16 126/78 95 03/20/21 12:02 97 145/100 H 100 02/15/21 10:47 100 18 138/75 H 99 02/15/21 08:42 36.5 C 98 16 121/74 94 - Physical Exam General Appearance: positive: Lethargic, Other (He appears comfortable in bed but is lethargic. Will occasionally mumble a few words but they are not coherent.) Eyes Bilateral: positive: Conjunctivae nml ENT: positive: Dry mucous membranes Neck: positive: Nml inspection Respiratory: positive: No respiratory distress. negative: Wheezes, Rales Cardiovascular: positive: Tachycardia. negative: Irregularly irregular Abdomen: positive: Non-tender, No distention Skin: positive: Warm, Dry Extremities: positive: Pedal edema (Trace edema.) Neurologic/Psychiatric: positive: Disoriented to person, Disoriented to place Conclusion/Plan - Problem List (1) Dementia Conclusion/Plan: Patient unfortunately has advanced dementia and has significantly declined over the past few weeks. The focus is now just on her comfort and the family cannot take care of her at home. The plan is to admit her to the hospital to help assist the family with disposition. Social work has been consulted and appreciate their input. The plan is to discharge her to a facility on hospice. While she is here, we will focus on just her comfort. The family does not want any IV fluids or antibiotics whatsoever. Qualifiers: Dementia type: unspecified type Dementia behavioral disturbance: with beha vioral disturbance Qualified Code(s): F03.91 - Unspecified dementia with behavioral disturbance (2) Dehydration Conclusion/Plan: She jose appear to be dehydrated but family does not want IV fluids. P.o. intake as tolerated only. (3) End of life care Conclusion/Plan: She has had significant decline due to her dementia and the plan is now to focus on just her comfort. Will use morphine as needed for dyspnea or pain. Appreciate social work input regarding disposition. Plan is for hospice on discharge. - Lab Results Lab results reviewed: Yes Fish Bones: 02/15/21 09:07 02/15/21 09:07 - Diagnostic Imaging Results Diagnostic Imaging Results: positive: Final report reviewed Core Measures - Anticipated LOS I expect patient to be DC'd or transferred within 96 hours.: Yes - Issues Hospital Issues and Management Plan: 75-year-old female with advanced dementia who presents after being found unresponsive and found to be dehydrated. Family does not want treatment and would like to focus only on her comfort. Disposition has been a challenge and so she will be admitted to the hospital for disposition planning. Will use morphine as needed to treat her pain/dyspnea. - DVT/VTE - Prophylaxis VTE/DVT Device ordered at admit?: No Not Ordered - Medical Reason: Not indicated VTE/DVT Prophylaxis med ordered at admit?: No Not Ordered - Medical Reason: Not indicated
[2021-02-15] MEDS: SODIUM CHLORIDE FLUSH 0.9% 10 ML SYRINGE IVP SCH ×2 (18:45→23:39)
[2021-02-15] MEDS: MORPHINE 2 MG/ML CARPUJECT IVP PRN (23:38)
[2021-02-16] MEDS: MORPHINE 2 MG/ML CARPUJECT IVP PRN ×5 (02:42→20:12)
[2021-02-16] MEDS ORDERED: polyethylene glycoL 3350 17 GM PACKET PO PRN (06:58)
--- NOTE | 2021-02-16 07:08 | PHARMACY PROGRESS NOTE ---
- Best Possible Medication History Admit Date and Time: 02/15/21 1627 Processed by: Pharmacy Medication History completed: Yes Patient Interview: Pt unable to participate Secondary Source(s): Pharmacy records, Insurance records As the person ultimately responsible for medication therapy, providers are able to order a medication from an existing home medication list in [facility] via the "Reconcile Routine" prior to Confirmation of that medication by network diagnostic support specialist. Such practice is discouraged except when the physician, in their clinical judgment, deems that a medical need exists for a medication without regard to previous use.
[2021-02-16] MEDS ORDERED: ONDANSETRON 4 MG/2 ML VIAL IVP PRN (07:38)
[2021-02-16] MEDS: SODIUM CHLORIDE FLUSH 0.9% 10 ML SYRINGE IVP SCH ×2 (08:54→15:38)
--- NOTE | 2021-02-16 11:10 | PROVIDER PROGRESS NOTE ---
Subjective - Prog Note Date Prog Note Date: 02/16/21 - Subjective Subjective: She appears uncomfortable and agitated. She will yell out "help me! help me! help me!" When asked what is wrong, she states mumbles "I do not know" Current Medications - Current Medications Current Medications: Active Medications Haloperidol (Haloperidol 5 Mg/Ml Vial) 1 mg IVP Q6H PRN PRN Reason: Agitation Morphine Sulfate (Morphine 2 Mg/Ml Carpuject) 2 mg IVP Q2HR PRN PRN Reason: NEEDED PER PROVIDER ORDERS Last Admin: 02/16/21 08:54 Dose: 2 mg Documented by: Ondansetron HCl (Ondansetron 4 Mg/2 Ml Vial) 4 mg IVP Q8H PRN PRN Reason: Nausea / Vomiting Polyethylene Glycol (Polyethylene Glycol 3350 17 Gm Packet) 17 gm PO DAILY PRN PRN Reason: Bowel Protocol Sodium Chloride (Sodium Chloride Flush 0.9% 10 Ml Syringe) 10 ml IVP PRN PRN PRN Reason: NEEDED PER PROVIDER ORDERS Sodium Chloride (Sodium Chloride Flush 0.9% 10 Ml Syringe) 10 ml IVP 0100,0900,1700 ADRI Last Admin: 02/16/21 08:54 Dose: 10 ml Documented by: Albuterol Sulfate [Albuterol Sulfate Hfa] 1 - 2 puffs IH BID PRN 10/02/19 Fenofibrate Nanocrystallized [Tricor] 145 mg PO DAILY 01/14/21 Furosemide [Lasix] 20 mg PO DAILY 01/20/21 Lansoprazole [Prevacid] 30 mg PO DAILY 01/20/21 Objective - Vital Signs/Intake & Output Reviewed Vital Signs: Yes Vital Signs: Vital Signs x48h Temp Pulse Resp BP Pulse Ox 02/16/21 08:36 36.4 C L 109 H 20 150/75 H 100 Intake & Output: Intake & Output 02/13/21 02/14/21 02/15/21 02/16/21 23:59 23:59 23:59 23:59 Intake Total 20 240 Output Total 50 120 Balance -30 120 - Objective General Appearance: positive: Mild distress ENT: positive: Dry mucous membranes. negative: No signs of dehydration Respiratory: positive: No respiratory distress. negative: Wheezes, Rales Cardiovascular: positive: Tachycardia. negative: Irregularly irregular Abdomen: positive: Non-tender, No distention. negative: Tenderness - Lab Results Fish Bones: 02/15/21 09:07 02/15/21 09:07 Assessment/Plan - Problem List (1) Dementia Impression: She has been declining rapidly from a dementia standpoint for the past few weeks and since hospitalization, she appears to be agitated and restless. She has been receiving morphine with only minimal improvement. We will add Haldol and consider increasing the frequency of morphine. The focus is comfort measures and will work closely with social work regarding disposition. We will place a hospice referral. Qualifiers: Dementia type: unspecified type Dementia behavioral disturbance: with behavioral disturbance Qualified Code(s): F03.91 - Unspecified dementia with behavioral disturbance (2) Dehydration Impression: She does appear dehydrated but given the focus on comfort only, family has decided to hold off on IV fluids. (3) End of life care Impression: The focus at this time is on comfort care. She has been on morphine we will add Haldol given her agitation and restlessness.
[2021-02-16] MEDS: HALOPERIDOL 5 MG/ML VIAL IVP PRN (11:17)
[2021-02-16] MEDS: SODIUM CHLORIDE FLUSH 0.9% 10 ML SYRINGE IVP PRN ×2 (14:15→20:13)
[2021-02-17] MEDS: SODIUM CHLORIDE FLUSH 0.9% 10 ML SYRINGE IVP SCH ×4 (00:09→23:36)
[2021-02-17] MEDS: MORPHINE 2 MG/ML CARPUJECT IVP PRN ×2 (04:40→10:17)
[2021-02-17] MEDS: SODIUM CHLORIDE FLUSH 0.9% 10 ML SYRINGE IVP PRN ×3 (04:40→05:02)
[2021-02-17] MEDS: HALOPERIDOL 5 MG/ML VIAL IVP PRN (05:01)
[2021-02-17] MEDS ORDERED: HALOPERIDOL 5 MG/ML VIAL IVP PRN (05:54)
--- NOTE | 2021-02-17 13:44 | PROVIDER PROGRESS NOTE ---
Subjective - Prog Note Date Prog Note Date: 02/17/21 - Subjective Subjective: She appears more comfortable today. She has not been yelling or screaming out like she was yesterday morning. Current Medications - Current Medications Current Medications: Active Medications Haloperidol (Haloperidol 5 Mg/Ml Vial) 1 mg IVP Q6H PRN PRN Reason: Agitation Last Admin: 02/17/21 12:20 Dose: 1 mg Documented by: Morphine Sulfate (Morphine 2 Mg/Ml Carpuject) 2 mg IVP Q2HR PRN PRN Reason: NEEDED PER PROVIDER ORDERS Last Admin: 02/17/21 10:17 Dose: 2 mg Documented by: Ondansetron HCl (Ondansetron 4 Mg/2 Ml Vial) 4 mg IVP Q8H PRN PRN Reason: Nausea / Vomiting Polyethylene Glycol (Polyethylene Glycol 3350 17 Gm Packet) 17 gm PO DAILY PRN PRN Reason: Bowel Protocol Sodium Chloride (Sodium Chloride Flush 0.9% 10 Ml Syringe) 10 ml IVP PRN PRN PRN Reason: NEEDED PER PROVIDER ORDERS Last Admin: 02/17/21 05:02 Dose: 10 ml Documented by: Sodium Chloride (Sodium Chloride Flush 0.9% 10 Ml Syringe) 10 ml IVP 0100,0900,1700 ADRI Last Admin: 02/17/21 10:22 Dose: 10 ml Documented by: Albuterol Sulfate [Albuterol Sulfate Hfa] 1 - 2 puffs IH BID PRN 10/02/19 Fenofibrate Nanocrystallized [Tricor] 145 mg PO DAILY 01/14/21 Furosemide [Lasix] 20 mg PO DAILY 01/20/21 Lansoprazole [Prevacid] 30 mg PO DAILY 01/20/21 Objective - Vital Signs/Intake & Output Reviewed Vital Signs: Yes Vital Signs: Vital Signs x48h Pulse Resp BP Pulse Ox 02/17/21 12:24 100 22 118/68 94 Intake & Output: Intake & Output 02/14/21 02/15/21 02/16/21 02/17/21 23:59 23:59 23:59 23:59 Intake Total 20 240 Output Total 50 120 1500 Balance -30 120 -1500 - Objective General Appearance: positive: Other (She appears comfortable in bed. She will open her eyes when spoken to but will not speak to me.) ENT: positive: ENT inspection nml Cardiovascular: positive: Tachycardia - Lab Results Fish Bones: 02/15/21 09:07 02/15/21 09:07 Other Labs: Lab Results x24hrs 02/15/21 Range/Units 18:10 Coronavirus (PCR) NEGATIVE ABX Reporting Has patient been on IV antibiotics over the past 48 hours?: No Assessment/Plan - Problem List (1) Dementia Impression: She had been declining over the past few weeks from a dementia standpoint with poor oral intake and malnutrition. Family cannot get care for her and they have decided to focus on her comfort only. She does appear less agitated today after initiation of Haldol yesterday and continuing the morphine. We are working closely with social work regarding disposition as the patient cannot return home as her sister is moving from their current location and it would not be an appropriate environment for end-of-life. She was also evaluated by hospice today and appreciate their input. We will continue with the Haldol, morphine as needed. Qualifiers: Dementia type: unspecified type Dementia behavioral disturbance: with behavioral disturbance Qualified Code(s): F03.91 - Unspecified dementia with behavioral disturbance (2) Dehydration Impression: With the focus being on comfort only, we did not initiate IV fluids. (3) End of life care Impression: The focus is on her comfort only. We will continue with the morphine and Haldol as mentioned.
[2021-02-17] MEDS: MORPHINE SOL 10 MG/0.5 ML ORAL SYRINGE PO PRN ×3 (14:20→20:33)
[2021-02-17] MEDS ORDERED: ZINC OXIDE 20% OINT 30 GM TUBE TOP PRN (14:51)
[2021-02-17] MEDS: HALOPERIDOL 10 MG/5 ML UDC PO PRN ×2 (17:03→23:39)
[2021-02-18] MEDS: MORPHINE SOL 10 MG/0.5 ML ORAL SYRINGE PO PRN ×3 (03:23→21:57)
[2021-02-18] MEDS ORDERED: BISACODYL 10 MG SUPP PR ONE (06:23)
[2021-02-18] MEDS: SODIUM CHLORIDE FLUSH 0.9% 10 ML SYRINGE IVP SCH ×3 (08:53→23:33)
--- NOTE | 2021-02-18 13:42 | PROVIDER PROGRESS NOTE ---
Assessment/Plan - Problem List (1) Advanced dementia Assessment/Plan: 02/18 Patient is still very confused, patient refused to eat. pt Has been on focus comfortable care only status. social Work was consulted for disposition, Hospice care team was consulted for hospice care. Family cannot get care for her and they have decided to focus on her comfort only and hospice care. We will continue with the Haldol, morphine as needed in the hospital now. (2) Dehydration Impression: pt has been on the focus on comfort only, we did not initiate IV fluids. (3) End of life care Impression: The focus is on her comfort only status. We will continue with the morphine, Haldol PRN - Current Meds Current Meds: Current Medications Generic Name Dose Route Start Last Admin Trade Name Freq PRN Reason Stop Dose Admin Haloperidol 1 mg 02/17/21 13:45 02/17/21 23:39 Haloperidol 10 Mg/5 Ml Udc PO 1 mg Q4HR PRN Administration Agitation Morphine Sulfate 5 mg 02/17/21 13:45 02/18/21 03:23 Morphine Melba 10 Mg/0.5 Ml Oral Syringe PO 5 mg Q2HR PRN Administration PAIN Sodium Chloride 10 ml 02/15/21 16:27 02/17/21 05:02 Sodium Chloride Flush 0.9% 10 Ml Syringe IVP 10 ml PRN PRN Administration NEEDED PER PROVIDER ORDERS Sodium Chloride 10 ml 02/15/21 17:00 02/18/21 08:53 Sodium Chloride Flush 0.9% 10 Ml Syringe IVP Not Given 0100,0900,1700 ADRI - Lab Result Fish Bone Diagrams: 02/15/21 09:07 02/15/21 09:07 - Additional Planning My Orders: My Active Orders 02/18/21 Hospice Referral for Post-Discharge Services [CONS] Routine Subjective - Subjective Nursing Reports: Confused Objective Vital Signs: Vital Signs - 24 hr 02/17/21 02/17/21 16:22 21:42 Temperature 38.2 C H 36.8 C Heart Rate [ 115 H Brachial] Respiratory 20 Rate Blood Pressure 129/71 [Left Brachial artery] O2 Saturation 94 Oxygen O2 Source Room air I&O (Last 24 Hrs): Intake and Output Totals x24h 02/16/21 02/17/21 02/18/21 23:59 23:59 23:59 Intake Total 240 Output Total 120 1900 250 Balance 120 -1900 -250 General: Alert HEENT: Atraumatic Neck: Supple Neuro: Alert Cardiovascular: Regular rate, Normal S1, Normal S2 Respiratory: Chest non-tender, No respiratory distress Abdomen: Normal bowel sounds, Soft Extremities: Normal pulses - Results Results: Laboratory Results WBC 12.1 x10^3/uL (4.8-10.8) H 02/15/21 09:07 RBC 4.72 10^6/uL (4.20-5.40) 02/15/21 09:07 Hgb 14.2 g/dL (12.0-16.0) 02/15/21 09:07 Hct 43.6 % (37.0-47.0) 02/15/21 09:07 MCV 92.4 fL (81.0-99.0) 02/15/21 09:07 MCH 30.1 pg (27.0-31.0) 02/15/21 09:07 MCHC 32.6 g/dL (32.0-36.0) 02/15/21 09:07 RDW 13.6 % (12.0-15.0) 02/15/21 09:07 Plt Count 306 10^3/uL (130-450) 02/15/21 09:07 MPV 10.8 fL (7.9-10.8) 02/15/21 09:07 Neut # (Auto) 10.1 10^3/uL (1.5-6.6) H 02/15/21 09:07 Lymph # (Auto) 1.0 10^3/uL (1.5-3.5) L 02/15/21 09:07 [place] # (Auto) 0.8 10^3/uL (0.0-1.0) 02/15/21 09:07 Eos # (Auto) 0.1 10^3/uL (0.0-0.7) 02/15/21 09:07 Baso # (Auto) 0.0 10^3/uL (0.0-0.1) 02/15/21 09:07 Absolute Nucleated RBC 0.00 x10^3/uL 02/15/21 09:07 Nucleated RBC % 0.0 /100WBC 02/15/21 09:07 Sodium 136 mmol/L (135-145) 02/15/21 09:07 Potassium 4.2 mmol/L (3.5-5.0) 02/15/21 09:07 Chloride 102 mmol/L (101-111) 02/15/21 09:07 Carbon Dioxide 24 mmol/L (21-32) 02/15/21 09:07 Anion Gap 10.0 (6-13) 02/15/21 09:07 BUN 29 mg/dL (6-20) H 02/15/21 09:07 Creatinine 0.9 mg/dL (0.4-1.0) 02/15/21 09:07 Estimated GFR (MDRD) 61 (>89) L 02/15/21 09:07 Glucose 130 mg/dL (70-100) H 02/15/21 09:07 Lactic Acid 1.1 mmol/L (0.5-2.2) 02/15/21 09:07 Calcium 10.5 mg/dL (8.5-10.3) H 02/15/21 09:07 Total Bilirubin 1.2 mg/dL (0.2-1.0) H 02/15/21 09:07 AST 38 IU/L (10-42) 02/15/21 09:07 ALT 26 IU/L (10-60) 02/15/21 09:07 Alkaline Phosphatase 40 IU/L (42-121) L 02/15/21 09:07 Total Protein 6.3 g/dL (6.7-8.2) L 02/15/21 09:07 Albumin 3.8 g/dL (3.2-5.5) 02/15/21 09:07 Globulin 2.5 g/dL (2.1-4.2) 02/15/21 09:07 Albumin/Globulin Ratio 1.5 (1.0-2.2) 02/15/21 09:07 Lipase 23 U/L (22-51) 02/15/21 09:07 Urine Color DARK YELLOW 02/15/21 09:46 Urine Clarity CLEAR (CLEAR) 02/15/21 09:46 Urine pH 6.0 PH (5.0-7.5) 02/15/21 09:46 Ur Specific [place] 1.025 (1.002-1.030) 02/15/21 09:46 Urine Protein NEGATIVE mg/dL (NEGATIVE) 02/15/21 09:46 Urine Glucose (UA) NEGATIVE mg/dL (NEGATIVE) 02/15/21 09:46 Urine Ketones NEGATIVE mg/dL (NEGATIVE) 02/15/21 09:46 Urine Occult Blood SMALL (NEGATIVE) H 02/15/21 09:46 Urine Nitrite NEGATIVE (NEGATIVE) 02/15/21 09:46 Urine Bilirubin NEGATIVE (NEGATIVE) 02/15/21 09:46 Urine Urobilinogen 0.2 (NORMAL) E.U./dL (NORMAL) 02/15/21 09:46 Ur Leukocyte Esterase NEGATIVE (NEGATIVE) 02/15/21 09:46 Urine RBC 0-5 /HPF (0-5) 02/15/21 09:46 Urine WBC 0-3 /HPF (0-5) 02/15/21 09:46 Ur Squamous Epith Cells RARE Squamous (<= Few) 02/15/21 09:46 Urine Bacteria Rare /HPF (None Seen) 02/15/21 09:46 Ur Microscopic Review INDICATED 02/15/21 09:46 Urine Culture Comments NOT INDICATED 02/15/21 09:46 Coronavirus (PCR) NEGATIVE 02/15/21 18:10 ABX Reporting Has patient been on IV antibiotics over the past 48 hours?: No Current Medications - Current Medications Current Medications: Active Medications Haloperidol (Haloperidol 10 Mg/5 Ml Udc) 1 mg PO Q4HR PRN PRN Reason: Agitation Last Admin: 02/17/21 23:39 Dose: 1 mg Documented by: Morphine Sulfate (Morphine Melba 10 Mg/0.5 Ml Oral Syringe) 5 mg PO Q2HR PRN PRN Reason: PAIN Last Admin: 02/18/21 03:23 Dose: 5 mg Documented by: Multi-Ingredient Ointment (Zinc Oxide 20% Oint 30 Gm Tube) 1 applic TOP PRN PRN PRN Reason: Skin Care Ondansetron HCl (Ondansetron 4 Mg/2 Ml Vial) 4 mg IVP Q8H PRN PRN Reason: Nausea / Vomiting Polyethylene Glycol (Polyethylene Glycol 3350 17 Gm Packet) 17 gm PO DAILY PRN PRN Reason: Bowel Protocol Sodium Chloride (Sodium Chloride Flush 0.9% 10 Ml Syringe) 10 ml IVP PRN PRN PRN Reason: NEEDED PER PROVIDER ORDERS Last Admin: 02/17/21 05:02 Dose: 10 ml Documented by: Sodium Chloride (Sodium Chloride Flush 0.9% 10 Ml Syringe) 10 ml IVP 0100,0900,1700 ADRI Last Admin: 02/18/21 08:53 Dose: Not Given Documented by: Albuterol Sulfate [Albuterol Sulfate Hfa] 1 - 2 puffs IH BID PRN 10/02/19 Fenofibrate Nanocrystallized [Tricor] 145 mg PO DAILY 01/14/21 Furosemide [Lasix] 20 mg PO DAILY 01/20/21 Lansoprazole [Prevacid] 30 mg PO DAILY 01/20/21
[2021-02-18] MEDS ORDERED: LORazepam 0.5 MG TABLET SL PRN (13:47)
[2021-02-18] MEDS: HALOPERIDOL 10 MG/5 ML UDC PO PRN ×2 (18:25→22:56)
[2021-02-19] MEDS: MORPHINE SOL 10 MG/0.5 ML ORAL SYRINGE PO PRN ×3 (03:08→20:03)
[2021-02-19] MEDS: SODIUM CHLORIDE FLUSH 0.9% 10 ML SYRINGE IVP SCH ×2 (09:47→18:30)
--- NOTE | 2021-02-19 14:30 | PROVIDER PROGRESS NOTE ---
Assessment/Plan - Problem List (1) Advanced dementia Assessment/Plan: 02/19 pt present some lethargy, and comfortable, still refused to eat. pt was reported to have low degree fever once then fever was waned away. Since pt is comfort care only status, no further intervention. continue with the Haldol, morphine as needed in the hospital for comfort care. continue consult with pediatric social worker for disposition for hospice care. 02/18 Patient is still very confused, patient refused to eat. pt Has been on focu s comfortable care only status. social Work was consulted for disposition, Hospice care team was consulted for hospice care. Family cannot get care for her and they have decided to focus on her comfort only and hospice care. We will continue with the Haldol, morphine as needed in the hospital now. (2) Dehydration Impression: pt has been on the focus on comfort only, we did not initiate IV fluids. (3) End of life care Impression: The focus is on her comfort only status. We will continue with the morphine, Haldol PRN - Current Meds Current Meds: Current Medications Generic Name Dose Route Start Last Admin Trade Name Freq PRN Reason Stop Dose Admin Haloperidol 1 mg 02/17/21 13:45 02/18/21 22:56 Haloperidol 10 Mg/5 Ml Udc PO 1 mg Q4HR PRN Administration Agitation Morphine Sulfate 5 mg 02/17/21 13:45 02/19/21 10:16 Morphine Melba 10 Mg/0.5 Ml Oral Syringe PO 5 mg Q2HR PRN Administration PAIN Multi-Ingredient Ointment 1 applic 02/17/21 14:51 02/19/21 10:16 Zinc Oxide 20% Oint 30 Gm Tube TOP 1 applic PRN PRN Administration Skin Care Sodium Chloride 10 ml 02/15/21 16:27 02/17/21 05:02 Sodium Chloride Flush 0.9% 10 Ml Syringe IVP 10 ml PRN PRN Administration NEEDED PER PROVIDER ORDERS Sodium Chloride 10 ml 02/15/21 17:00 02/19/21 09:47 Sodium Chloride Flush 0.9% 10 Ml Syringe IVP Not Given 0100,0900,1700 ADRI - Lab Result Fish Bone Diagrams: 02/15/21 09:07 02/15/21 09:07 Subjective - Subjective Patient Reports: Resting Comfortably Objective Vital Signs: Vital Signs - 24 hr 03/02/19/21 02/19/21 21:32 00:30 07:43 Temperature 37.6 C 37.2 C 37.3 C Heart Rate [ 116 H 113 H 112 H Brachial] Respiratory 21 18 20 Rate Blood Pressure 138/77 H [Left Ankle] Blood Pressure 145/87 H [Left Brachial artery] Blood Pressure 119/77 [Right Brachial artery] O2 Saturation 95 94 93 Oxygen O2 Source Room air I&O (Last 24 Hrs): Intake and Output Totals x24h 02/17/21 02/18/21 02/19/21 23:59 23:59 23:59 Output Total 1900 900 400 Balance -1900 -900 -400 General: Alert, No acute distress HEENT: Atraumatic Neck: Supple Lymphatic: no adenopathy Neuro: Alert, Non Focal Cardiovascular: Regular rate, Normal S1, Normal S2 Respiratory: Chest non-tender, No respiratory distress Abdomen: Normal bowel sounds, Soft Extremities: Normal pulses - Results Results: Laboratory Results WBC 12.1 x10^3/uL (4.8-10.8) H 02/15/21 09:07 RBC 4.72 10^6/uL (4.20-5.40) 02/15/21 09:07 Hgb 14.2 g/dL (12.0-16.0) 02/15/21 09:07 Hct 43.6 % (37.0-47.0) 02/15/21 09:07 MCV 92.4 fL (81.0-99.0) 02/15/21 09:07 MCH 30.1 pg (27.0-31.0) 02/15/21 09:07 MCHC 32.6 g/dL (32.0-36.0) 02/15/21 09:07 RDW 13.6 % (12.0-15.0) 02/15/21 09:07 Plt Count 306 10^3/uL (130-450) 02/15/21 09:07 MPV 10.8 fL (7.9-10.8) 02/15/21 09:07 Neut # (Auto) 10.1 10^3/uL (1.5-6.6) H 02/15/21 09:07 Lymph # (Auto) 1.0 10^3/uL (1.5-3.5) L 02/15/21 09:07 [place] # (Auto) 0.8 10^3/uL (0.0-1.0) 02/15/21 09:07 Eos # (Auto) 0.1 10^3/uL (0.0-0.7) 02/15/21 09:07 Baso # (Auto) 0.0 10^3/uL (0.0-0.1) 02/15/21 09:07 Absolute Nucleated RBC 0.00 x10^3/uL 02/15/21 09:07 Nucleated RBC % 0.0 /100WBC 02/15/21 09:07 Sodium 136 mmol/L (135-145) 02/15/21 09:07 Potassium 4.2 mmol/L (3.5-5.0) 02/15/21 09:07 Chloride 102 mmol/L (101-111) 02/15/21 09:07 Carbon Dioxide 24 mmol/L (21-32) 02/15/21 09:07 Anion Gap 10.0 (6-13) 02/15/21 09:07 BUN 29 mg/dL (6-20) H 02/15/21 09:07 Creatinine 0.9 mg/dL (0.4-1.0) 02/15/21 09:07 Estimated GFR (MDRD) 61 (>89) L 02/15/21 09:07 Glucose 130 mg/dL (70-100) H 02/15/21 09:07 Lactic Acid 1.1 mmol/L (0.5-2.2) 02/15/21 09:07 Calcium 10.5 mg/dL (8.5-10.3) H 02/15/21 09:07 Total Bilirubin 1.2 mg/dL (0.2-1.0) H 02/15/21 09:07 AST 38 IU/L (10-42) 02/15/21 09:07 ALT 26 IU/L (10-60) 02/15/21 09:07 Alkaline Phosphatase 40 IU/L (42-121) L 02/15/21 09:07 Total Protein 6.3 g/dL (6.7-8.2) L 02/15/21 09:07 Albumin 3.8 g/dL (3.2-5.5) 02/15/21 09:07 Globulin 2.5 g/dL (2.1-4.2) 02/15/21 09:07 Albumin/Globulin Ratio 1.5 (1.0-2.2) 02/15/21 09:07 Lipase 23 U/L (22-51) 02/15/21 09:07 Urine Color DARK YELLOW 02/15/21 09:46 Urine Clarity CLEAR (CLEAR) 02/15/21 09:46 Urine pH 6.0 PH (5.0-7.5) 02/15/21 09:46 Ur Specific [place] 1.025 (1.002-1.030) 02/15/21 09:46 Urine Protein NEGATIVE mg/dL (NEGATIVE) 02/15/21 09:46 Urine Glucose (UA) NEGATIVE mg/dL (NEGATIVE) 02/15/21 09:46 Urine Ketones NEGATIVE mg/dL (NEGATIVE) 02/15/21 09:46 Urine Occult Blood SMALL (NEGATIVE) H 02/15/21 09:46 Urine Nitrite NEGATIVE (NEGATIVE) 02/15/21 09:46 Urine Bilirubin NEGATIVE (NEGATIVE) 02/15/21 09:46 Urine Urobilinogen 0.2 (NORMAL) E.U./dL (NORMAL) 02/15/21 09:46 Ur Leukocyte Esterase NEGATIVE (NEGATIVE) 02/15/21 09:46 Urine RBC 0-5 /HPF (0-5) 02/15/21 09:46 Urine WBC 0-3 /HPF (0-5) 02/15/21 09:46 Ur Squamous Epith Cells RARE Squamous (<= Few) 02/15/21 09:46 Urine Bacteria Rare /HPF (None Seen) 02/15/21 09:46 Ur Microscopic Review INDICATED 02/15/21 09:46 Urine Culture Comments NOT INDICATED 02/15/21 09:46 Coronavirus (PCR) NEGATIVE 02/15/21 18:10 ABX Reporting Has patient been on IV antibiotics over the past 48 hours?: No Current Medications - Current Medications Current Medications: Active Medications Haloperidol (Haloperidol 10 Mg/5 Ml Udc) 1 mg PO Q4HR PRN PRN Reason: Agitation Last Admin: 02/18/21 22:56 Dose: 1 mg Documented by: Morphine Sulfate (Morphine Melba 10 Mg/0.5 Ml Oral Syringe) 5 mg PO Q2HR PRN PRN Reason: PAIN Last Admin: 02/19/21 10:16 Dose: 5 mg Documented by: Multi-Ingredient Ointment (Zinc Oxide 20% Oint 30 Gm Tube) 1 applic TOP PRN PRN PRN Reason: Skin Care Last Admin: 02/19/21 10:16 Dose: 1 applic Documented by: Ondansetron HCl (Ondansetron 4 Mg/2 Ml Vial) 4 mg IVP Q8H PRN PRN Reason: Nausea / Vomiting Polyethylene Glycol (Polyethylene Glycol 3350 17 Gm Packet) 17 gm PO DAILY PRN PRN Reason: Bowel Protocol Sodium Chloride (Sodium Chloride Flush 0.9% 10 Ml Syringe) 10 ml IVP PRN PRN PRN Reason: NEEDED PER PROVIDER ORDERS Last Admin: 02/17/21 05:02 Dose: 10 ml Documented by: Sodium Chloride (Sodium Chloride Flush 0.9% 10 Ml Syringe) 10 ml IVP 0100,0900,1700 ADRI Last Admin: 02/19/21 09:47 Dose: Not Given Documented by: Albuterol Sulfate [Albuterol Sulfate Hfa] 1 - 2 puffs IH BID PRN 10/02/19 Fenofibrate Nanocrystallized [Tricor] 145 mg PO DAILY 01/14/21 Furosemide [Lasix] 20 mg PO DAILY 01/20/21 Lansoprazole [Prevacid] 30 mg PO DAILY 01/20/21
[2021-02-20] MEDS: MORPHINE SOL 10 MG/0.5 ML ORAL SYRINGE PO PRN ×5 (03:08→21:10)
[2021-02-20 08:16] VITALS: BP 112/76
[2021-02-20] MEDS: SODIUM CHLORIDE FLUSH 0.9% 10 ML SYRINGE IVP SCH ×4 (09:42→23:17)
--- NOTE | 2021-02-20 10:49 | PROVIDER PROGRESS NOTE ---
Assessment/Plan - Problem List (1) Advanced dementia Assessment/Plan: 02/20 pt still is confused. I with [employer] did try to feed pt, she did drink water but no diet food. continue comfort care only status, continue with the Haldol, morphine as needed. 02/19 pt present some lethargy, and comfortable, still refused to eat. pt was reported to have spotted once low degree of fever then fever was waned away. co ntinue with the Haldol, morphine as needed in the hospital for comfort care. continue consult with social service liaison for disposition for hospice care. 02/18 Patient is still very confused, patient refused to eat. pt Has been on focus comfortable care only status. social Work was consulted for disposition, Hospice care team was consulted for hospice care. Family cannot get care for her and they have decided to focus on her comfort only and hospice care. We will continue with the Haldol, morphine as needed in the hospital now. (2)anorexia 02/20 It has been pt's medical issue. pt does not eat any food now, today pt did drink water. we will continue support pt, meanwhile recognize pt is on comfort care only status. (3)tachycardia 02/20 pt has HR at 113, pt still present active movement. we will continue monitor pt, will call pt's family if pt's condition deteriorate and became critical. pt is on comfort only care status, continue with the Haldol, morphine as needed. (4) End of life care Impression: 02/20 pt still has active movement, confused. It seems pt is not active dying yet. Discussed with nurse, if pt present critical condition, we will call her family come to hospital to see pt, although pt's family is welcomed to come to hospital to see pt at this end of life care situation. The focus is on her comfort only status. We will continue with the morphine, Haldol PRN - Current Meds Current Meds: Current Medications Generic Name Dose Route Start Last Admin Trade Name Freq PRN Reason Stop Dose Admin Haloperidol 1 mg 02/17/21 13:45 02/18/21 22:56 Haloperidol 10 Mg/5 Ml Udc PO 1 mg Q4HR PRN Administration Agitation Morphine Sulfate 5 mg 02/17/21 13:45 02/20/21 09:41 Morphine Melba 10 Mg/0.5 Ml Oral Syringe PO 5 mg Q2HR PRN Administration PAIN Multi-Ingredient Ointment 1 applic 02/17/21 14:51 02/19/21 10:16 Zinc Oxide 20% Oint 30 Gm Tube TOP 1 applic PRN PRN Administration Skin Care Sodium Chloride 10 ml 02/15/21 16:27 02/17/21 05:02 Sodium Chloride Flush 0.9% 10 Ml Syringe IVP 10 ml PRN PRN Administration NEEDED PER PROVIDER ORDERS Sodium Chloride 10 ml 02/15/21 17:00 02/20/21 09:49 Sodium Chloride Flush 0.9% 10 Ml Syringe IVP Not Given 0100,0900,1700 ADRI - Lab Result Fish Bone Diagrams: 02/15/21 09:07 02/15/21 09:07 Subjective - Subjective Nursing Reports: Confused Objective Vital Signs: Vital Signs - 24 hr 02/20/21 08:14 Temperature 36.9 C Heart Rate [ 113 H Brachial] Respiratory 20 Rate Blood Pressure 112/76 [Left Brachial artery] O2 Saturation 94 Oxygen O2 Source Room air I&O (Last 24 Hrs): Intake and Output Totals x24h 02/18/21 02/19/21 02/20/21 23:59 23:59 23:59 Output Total 900 700 200 Balance -900 -700 -200 General: Alert, No acute distress HEENT: Atraumatic Neck: Supple Lymphatic: no adenopathy Neuro: Alert, Non Focal Cardiovascular: Regular rate, Normal S1, Normal S2 Respiratory: Chest non-tender, No respiratory distress Abdomen: Normal bowel sounds, Soft Extremities: Normal pulses - Results Results: Laboratory Results WBC 12.1 x10^3/uL (4.8-10.8) H 02/15/21 09:07 RBC 4.72 10^6/uL (4.20-5.40) 02/15/21 09:07 Hgb 14.2 g/dL (12.0-16.0) 02/15/21 09:07 Hct 43.6 % (37.0-47.0) 02/15/21 09:07 MCV 92.4 fL (81.0-99.0) 02/15/21 09:07 MCH 30.1 pg (27.0-31.0) 02/15/21 09:07 MCHC 32.6 g/dL (32.0-36.0) 02/15/21 09:07 RDW 13.6 % (12.0-15.0) 02/15/21 09:07 Plt Count 306 10^3/uL (130-450) 02/15/21 09:07 MPV 10.8 fL (7.9-10.8) 02/15/21 09:07 Neut # (Auto) 10.1 10^3/uL (1.5-6.6) H 02/15/21 09:07 Lymph # (Auto) 1.0 10^3/uL (1.5-3.5) L 02/15/21 09:07 [place] # (Auto) 0.8 10^3/uL (0.0-1.0) 02/15/21 09:07 Eos # (Auto) 0.1 10^3/uL (0.0-0.7) 02/15/21 09:07 Baso # (Auto) 0.0 10^3/uL (0.0-0.1) 02/15/21 09:07 Absolute Nucleated RBC 0.00 x10^3/uL 02/15/21 09:07 Nucleated RBC % 0.0 /100WBC 02/15/21 09:07 Sodium 136 mmol/L (135-145) 02/15/21 09:07 Potassium 4.2 mmol/L (3.5-5.0) 02/15/21 09:07 Chloride 102 mmol/L (101-111) 02/15/21 09:07 Carbon Dioxide 24 mmol/L (21-32) 02/15/21 09:07 Anion Gap 10.0 (6-13) 02/15/21 09:07 BUN 29 mg/dL (6-20) H 02/15/21 09:07 Creatinine 0.9 mg/dL (0.4-1.0) 02/15/21 09:07 Estimated GFR (MDRD) 61 (>89) L 02/15/21 09:07 Glucose 130 mg/dL (70-100) H 02/15/21 09:07 Lactic Acid 1.1 mmol/L (0.5-2.2) 02/15/21 09:07 Calcium 10.5 mg/dL (8.5-10.3) H 02/15/21 09:07 Total Bilirubin 1.2 mg/dL (0.2-1.0) H 02/15/21 09:07 AST 38 IU/L (10-42) 02/15/21 09:07 ALT 26 IU/L (10-60) 02/15/21 09:07 Alkaline Phosphatase 40 IU/L (42-121) L 02/15/21 09:07 Total Protein 6.3 g/dL (6.7-8.2) L 02/15/21 09:07 Albumin 3.8 g/dL (3.2-5.5) 02/15/21 09:07 Globulin 2.5 g/dL (2.1-4.2) 02/15/21 09:07 Albumin/Globulin Ratio 1.5 (1.0-2.2) 02/15/21 09:07 Lipase 23 U/L (22-51) 02/15/21 09:07 Urine Color DARK YELLOW 02/15/21 09:46 Urine Clarity CLEAR (CLEAR) 02/15/21 09:46 Urine pH 6.0 PH (5.0-7.5) 02/15/21 09:46 Ur Specific [place] 1.025 (1.002-1.030) 02/15/21 09:46 Urine Protein NEGATIVE mg/dL (NEGATIVE) 02/15/21 09:46 Urine Glucose (UA) NEGATIVE mg/dL (NEGATIVE) 02/15/21 09:46 Urine Ketones NEGATIVE mg/dL (NEGATIVE) 02/15/21 09:46 Urine Occult Blood SMALL (NEGATIVE) H 02/15/21 09:46 Urine Nitrite NEGATIVE (NEGATIVE) 02/15/21 09:46 Urine Bilirubin NEGATIVE (NEGATIVE) 02/15/21 09:46 Urine Urobilinogen 0.2 (NORMAL) E.U./dL (NORMAL) 02/15/21 09:46 Ur Leukocyte Esterase NEGATIVE (NEGATIVE) 02/15/21 09:46 Urine RBC 0-5 /HPF (0-5) 02/15/21 09:46 Urine WBC 0-3 /HPF (0-5) 02/15/21 09:46 Ur Squamous Epith Cells RARE Squamous (<= Few) 02/15/21 09:46 Urine Bacteria Rare /HPF (None Seen) 02/15/21 09:46 Ur Microscopic Review INDICATED 02/15/21 09:46 Urine Culture Comments NOT INDICATED 02/15/21 09:46 Coronavirus (PCR) NEGATIVE 02/15/21 18:10 ABX Reporting Has patient been on IV antibiotics over the past 48 hours?: No Current Medications - Current Medications Current Medications: Active Medications Haloperidol (Haloperidol 10 Mg/5 Ml Udc) 1 mg PO Q4HR PRN PRN Reason: Agitation Last Admin: 02/18/21 22:56 Dose: 1 mg Documented by: Morphine Sulfate (Morphine Melba 10 Mg/0.5 Ml Oral Syringe) 5 mg PO Q2HR PRN PRN Reason: PAIN Last Admin: 02/20/21 09:41 Dose: 5 mg Documented by: Multi-Ingredient Ointment (Zinc Oxide 20% Oint 30 Gm Tube) 1 applic TOP PRN PRN PRN Reason: Skin Care Last Admin: 02/19/21 10:16 Dose: 1 applic Documented by: Ondansetron HCl (Ondansetron 4 Mg/2 Ml Vial) 4 mg IVP Q8H PRN PRN Reason: Nausea / Vomiting Polyethylene Glycol (Polyethylene Glycol 3350 17 Gm Packet) 17 gm PO DAILY PRN PRN Reason: Bowel Protocol Sodium Chloride (Sodium Chloride Flush 0.9% 10 Ml Syringe) 10 ml IVP PRN PRN PRN Reason: NEEDED PER PROVIDER ORDERS Last Admin: 02/17/21 05:02 Dose: 10 ml Documented by: Sodium Chloride (Sodium Chloride Flush 0.9% 10 Ml Syringe) 10 ml IVP 0100,0900,1700 ADRI Last Admin: 02/20/21 09:49 Dose: Not Given Documented by: Albuterol Sulfate [Albuterol Sulfate Hfa] 1 - 2 puffs IH BID PRN 10/02/19 Fenofibrate Nanocrystallized [Tricor] 145 mg PO DAILY 01/14/21 Furosemide [Lasix] 20 mg PO DAILY 01/20/21 Lansoprazole [Prevacid] 30 mg PO DAILY 01/20/21
[2021-02-20 16:01] LABS: B. PARAPERTUSSIS- RESP PCR PAN NOT DETECTED; B. PERTUSSIS- RESP PCR PANEL NOT DETECTED; C. PNEUMONIAE- RESP PCR PANEL NOT DETECTED; CORONAVIRUS 229E-RESP PCR NOT DETECTED; CORONAVIRUS HKU1-RESP PCR NOT DETECTED; CORONAVIRUS NL63-RESP PCR NOT DETECTED; CORONAVIRUS OC43-RESP PCR NOT DETECTED; HUMAN METAPNEUMOVIRUS NOT DETECTED; INFLUENZA A- RESP PCR PANEL NOT DETECTED; INFLUENZA B - RESP PCR PANEL NOT DETECTED; M. PNEUMONIAE- RESP PCR PANEL NOT DETECTED; PARAINFLUENZA VIRUS 1 NOT DETECTED; PARAINFLUENZA VIRUS 2 NOT DETECTED; PARAINFLUENZA VIRUS 3 NOT DETECTED; PARAINFLUENZA VIRUS 4 NOT DETECTED; RHINOVIRUS/ENTEROVIRUS NOT DETECTED; RSV- RESP PCR PANEL NOT DETECTED; SARS-CoV-2 -RESP PCR PANEL NOT DETECTED
[2021-02-21] MEDS: MORPHINE SOL 10 MG/0.5 ML ORAL SYRINGE PO PRN ×4 (00:10→10:05)
[2021-02-21] MEDS: SODIUM CHLORIDE FLUSH 0.9% 10 ML SYRINGE IVP SCH (07:38)
--- NOTE | 2021-02-21 07:52 | Discharge Plan ---
Discharge Plan Problem Reviewed?: Yes Disposition: 50 Hospice/Home DC/Xfer Condition: Poor Diet: Soft Instruction Topics: Hospice Health Concerns: hospice care Plan of Treatment: d/c to [facility] hospice care Care Goals: quality of life, and hospice care Assessment: discussed the care plan with pt's sister Gwyn, answered her questions, Gwyn understood and agreed the care plan. Additional Instructions or Follow Up instructions: pt may followup with hospice care in [facility] hospice care No Smoking: If you smoke, Please STOP! Call for help.
--- NOTE | 2021-02-21 07:58 | DISCHARGE SUMMARY ---
Discharge Summary Admit Date: 02/15/21 Discharge Date: 02/21/21 Discharging Provider: Paulino Obregon Primary Care Provider: Katlyn Peterson Condition at Discharge: Poor Discharge Disposition: 50 Hospice/Home DC/Xfer Discharge Facility Name: [facility] - DIAGNOSES Discharge Diagnoses with Status of Each Condition: (1) Advanced dementia pt has had dementia now for over 4 years but has really declined over the past 5 to 6 weeks with poor oral intake and malnutrition. She appeared easy agitated. Family cannot get care for her and they have decided to focus on her comfort only, discharge on hospice care. Pt's caregiver, her sister Gwyn came to hospital on yesterday, she signed PLOST to focus on comfort care, and pt's all family were at the same page: comfort care only, discharge on hospice care. tube worker report it is pt's family common consensus: comfort care only, discharge on hospice care, as they discussed with pt's family all member. (2)anorexia poor oral intake (3)tachycardia pt's HR is around 115. pt seems comfort in hospital. pt's family focus on comfort care only status, no further intervention. (4)encounter of hospice care As pt's family wish, discharge to hospice care. [facility] does not need any medications for pt, they have a provider to write for pt as needed per rn social services report. - HPI History of Present Illness: refer from Dr. Barger's HPI on 02/15/21 This is a 75-year-old female with a past medical history significant for advanced dementia, hypertension who presents today from home after her sister found her unresponsive this morning. She was brought to the ER a couple of days ago as her sister cannot take care of her any further due to her worsening dementia. At that time, it was felt that she would likely need placement and so [facility] was contacted for admission and she was accepted in transfer but ultimately there were no beds available and she was discharged from the ER the following day back home after meeting with social work. Her sister tells me that since the patient has been home, she has had 2 falls and has had no oral intake whatsoever. Gwyn tells me that the patient has had dementia now for over 4 years but has really declined over the past 5 to 6 weeks. Gwyn states the patient has occasional lucid moments and this morning the patient told her that she "needed to go to the hospital and to just let her ." Patient has a POLST form which states that she is a DNR with the focus on comfort measures. Gwyn told the ER physician that she does not want any IV fluids or treatment for any potential medical problems. Plan is to just focus on her comfort and to help with disposition. I spoke with Gwyn today and she confirms this. She does not believe the patient can go back home as she is moving from her home at the end of the month and there are a lot of boxes around and it would not be an appropriate place for end-of-life. She would like the patient to go to a facility on hospice. - HOSPITAL COURSE Hospital Course: This is a social admission per pt's family can not provide any more care for pt. Unfortunately, patient has advanced dementia, frequent fall in the home and r efuse to take any oral diet in home. Patient's family wish to focus on comfortable care only and discharge to hospice care. Patient has been very poor oral intake in the hospital, easy agitated as well. Patient has been on hospital for comfortable care only. Social work found a disposition [facility] for hospice care for patient. - ALLERGIES Allergies/Adverse Reactions: Allergies Allergy/AdvReac Type Severity Reaction Status Date / Time No Known Drug Allergies Allergy Verified 02/15/21 08:47 - PHYSICAL EXAM AT DISCHARGE General Appearance: positive: No acute distress, Alert. negative: Lethargic Eyes Bilateral: positive: Normal inspection ENT: positive: ENT inspection nml, Dry mucous membranes Neck: positive: Nml inspection, Trachea midline. negative: Thyromegaly, Tracheal deviation Respiratory: positive: Chest non-tender, No respiratory distress. negative: Wheezes Cardiovascular: positive: Regular rate & rhythm, Tachycardia. negative: Bradycardia, Systolic murmur, Diastolic murmur Peripheral Pulses: positive: 2+ Abdomen: positive: Non-tender, Nml bowel sounds, No distention. negative: Tenderness Skin: positive: Color nml, Warm, Dry. negative: Cyanosis Extremities: positive: Non-tender, Nml appearance. negative: Calf tenderness Neurologic/Psychiatric: negative: Sensory loss, Facial droop - LABS Result Diagrams: 02/15/21 09:07 02/15/21 09:07 - FOLLOW UP Follow Up: pt may followup with hospice care - TIME SPENT Time Spent in Discharge (Minutes): 30
[2021-02-21] MEDS: HALOPERIDOL 10 MG/5 ML UDC PO PRN (10:05)
== END 2021-02-21 10:19 | disposition hospice, home (50) ==
LOC: EDUNIT# → ED 08:37 → MS2 16:27
PROVIDERS: ADMIT Internal Medicine; ATTEND Nurse Practitioner Gerontology
DX: F03.91 Unspecified dementia, unspecified severity, with behavioral disturbance (principal); E86.0 Dehydration; Z51.5 Encounter for palliative care; R63.0 Anorexia; R00.0 Tachycardia, unspecified; I10 Essential (primary) hypertension; Z91.81 History of falling; Z20.822 Contact with and (suspected) exposure to COVID-19; R53.83 Other fatigue
CPT/HCPCS: 36415; 51701; 71045; 80053; 81001; 83605; 83690; 85025; 87631; 96374; 96375; 96376; 99285; A9270; G0378; J2060; U0004; 0202U; 81003; 87086